=== PATIENT | female | born 1950 | race Caucasian/White ===

== ENCOUNTER 2018-05-22 12:47 | Inpatient (IN) | payer MEDICARE, SELFPAY ==
[2018-05-22] VITALS (10 sets, daily range): BP systolic 117–169; BP diastolic 68–98; PULSE 59–77; RESP 15–20; TEMP 36.5–37.1; O2SAT 93–98; BMI 27.4; BMI 27.6
--- NOTE | 2018-05-22 13:27 | RAD_ITS ---
STUDY: X-RAY CHEST REASON FOR EXAM: Female, 67 years old. CABG, stents. TECHNIQUE: Portable upright chest COMPARISON: None. FINDINGS: Clear lungs, hyperlucent and hyperinflated consistent with underlying COPD. Median sternotomy and CABG. Borderline cardiomegaly. Normal mediastinal silhouette, abdi and pleural margins. No acute osseous or upper abdominal process. RAD/Chest 1 View (Portable) IMPRESSION: No acute cardiopulmonary process. Electronically Signed: Venancio Carrasquillo, at 13:52 EDT Tel , Service support ,
--- NOTE | 2018-05-22 13:27 | EKG12_ITS ---
Test Reason : CP Blood Pressure : / mmHG Vent. Rate : 074 BPM Atrial Rate : 074 BPM P-R Int : 144 ms QRS Dur : 098 ms QT Int : 350 ms P-R-T Axes : 067 063 163 degrees QTc Int : 388 ms Sinus rhythm with occasional Premature ventricular complexes and Premature atrial complexes Marked ST abnormality, possible inferolateral subendocardial injury Abnormal ECG Confirmed by ANTONIA HOLLIS, RYDER ([id number]), scientific publications editor SENG AZEVEDO ([id number]) on 05/29/2018 3:46:55 PM Referred By: ACOSTA Confirmed By:RYDER KNIGHT MD
[2018-05-22 13:42] LABS: Absolute Lymphocyte Count 2.76 X10^3/ul (0.83-4.51); Absolute Neutrophil Count 6.4 X10^3/uL (2.0-7.7); Basophil# 0.02 X10^3/uL; Basophil% 0.2 % (0-1); Eosinophil# 0.13 X10^3/uL; Eosinophils% 1.3 % (0-5); Hematocrit 44.4 % (37-47); Hemoglobin 14.4 g/dl (12.0-15.0); Lymphocyte # 2.76 X10^3/ul (4.0); Lymphocyte % 27.2 % (19-41); Mean Corp Hgb Conc 32.4 g/gl (32-36); Mean Corpuscular Hgb 28.7 pg (27.0-32.0); Mean Corpuscular Volume 88.6 fL (81-99); Mean Platelet Vol. 10.7 fl (6.2-12.0); Monocyte# 0.81 X10^3/uL; Neutrophil % 63.2 % (47-70); POSITIVE COUNT NO; POSITIVE DIFFERENTIAL NO; POSITIVE MORPHOLOGY NO; Platelet Count 251 K/mm3 (150-450); RBC Distribution Width CV 13.6 % (11.6-14.6); RBC Distribution Width SD 43.9 fl (35.1-43.9); Red Blood Count 5.01 M/mm3 (4.2-5.4); White Blood Count 10.1 K/mm3 (4.4-11.0)
[2018-05-22 13:51] LABS: Anion Gap 9 (5-15); BUN 12 mg/dL (7-18); BUN/Creat Ratio 13.5 RATIO (10-20); Calcium,Total 9.4 mg/dL (8.5-10.1); Chloride 101 mmol/L (98-107); Creatinine, Serum 0.89 mg/dL (0.55-1.02); EST Glomerular Filtration Rate 67 mL/min (>60); Est Glom Filt Rate - Afr Amer 81 mL/min (>60); Estimated Creatinine Clearance 47.18 ml/min; Glucose 118 mg/dL (74-106); Potassium 3.4 mmol/L (3.5-5.1); Sodium Level 138 mmol/L (136-145)
--- NOTE | 2018-05-22 15:01 | ED.VISSUMM ---
- ER Visit Summary Date of Service: 05/22/18 Chief Complaint: Chest pain History of Present Illness: The patient is a 67 F with she describes his back pain for the past couple of weeks. She states when she lays down at night she gets a tightness in her back that radiates up and across her shoulder blades. It improves after she sits upright. She also reports dyspnea on exertion that is similar to her prior cardiac symptoms. With her prior cardiac episodes she denies ever getting chest pain. She is a past history of CVA, coronary disease, IA, hypertension, high cholesterol. She had a four-way cardiac bypass and does have cardiac stents. She has not seen her corporate manager in several years and wishes to transfer her care to [place]. Physical Examination: Vital signs are unremarkable. Patient sitting upright in bed no acute distress. She denies pain currently. Heart is regular rate and rhythm. Lung sounds are clear. Abdomen is soft nontender. Lower extreme examination was no significant edema. Test Results: Portable chest x-ray shows no acute process. EKG is sinus at 74 with large anterior lateral ST depression. This is unchanged compared to 2007. CBC is unremarkable. Chemistry studies significant for potassium 3.4, otherwise unremarkable. Troponin is 0.030. Emergency Department Course and Treatment: Patient does take aspirin every morning. She is given a dose of Pepcid. On repeat evaluation she is resting comfortably. Patient will be discussed with the hospitalist as she does describe the dyspnea being consistent with her prior cardiac episodes. Treatment Plan: [] Disposition: Admit Impression: Chest pain This note was generated with [employer] dictation software. It may contain incorrect words, spelling, and punctuation that were not noted in review of the chart prior to signing ED Disposition - Plan for ED Patient: Chief Complaint: Chest Pain Referrals: Andrea Mccallum MD [Primary Care Provider] -
--- NOTE | 2018-05-22 15:29 | ECHOD_ITS ---
Reason For Study: dyspnea/SOB Procedure This was a 2D Doppler, Color Flow transthoracic echocardiogram. The study was technically difficult. PT exam performed supine due to recent heart cath. Exam performed portable in ICU/CCU. Left Ventricle Normal LV size. Left ventricular systolic function is normal. The estimated ejection fraction is 60 %. Normal diastology for age. No regional wall motion abnormalities noted. Right Ventricle Normal RV size. Normal systolic function. Atria The left atrium is mildly enlarged. Normal right atrium. Mitral Valve Normal mitral valve. Mild-Moderate (1-2+) eccentric mitral valve insufficiency. Tricuspid Valve Normal tricuspid valve. Mild (1+) tricuspid valve insufficiency. Pulmonary artery systolic pressure is 34 mmHg. Aortic Valve Trisinus/trileaflet aortic valve. Moderate focal aortic valve calcification. Peak aortic valve gradient 31 mmHg. Mean aortic valve gradient 13 mmHg. Mild aortic stenosis. Calculated aortic valve area (continuity equation) is 1.2 cm2. Pulmonic Valve The pulmonic valve is not well visualized. Great Vessels Normal aortic root. The pulmonary artery is normal size. Normal inferior vena cava. Pericardium/Pleural No pericardial effusion. MMode/2D Measurements & Calculations LVIDd: 4.7 cm IVSd: 1.1 cm LVOT diam: 1.7 cm LVIDs: 3.1 cm LVPWd: 1.1 cm LVOT area: 2.3 cm2 RVDd: 3.7 cm FS: 33.8 % Ao root diam: 2.5 cm LAV(MOD-bp): 77.1 ml LA A4 area: 22.1 cm2 LA dimension: 4.1 cm LAV(MOD-bp) Indexed: 45.6 ml/m2 LAV(MOD-sp2): 79.4 ml LAV(MOD-sp4): 66.2 ml RA A4 area: 17.8 cm2 Doppler Measurements & Calculations MV E max kapil: 92.2 cm/sec Lat Peak E' Kapil: 7.9 cm/sec Med Peak E' Kapil: 6.4 cm/sec MV A max kapil: 84.4 cm/sec E/E' lat: 11.6 E/E' med: 14.5 MV E/A: 1.1 Ao V2 max: 278.7 cm/sec LV V1 max: 143.6 cm/sec MR max kapil: 543.5 cm/sec Ao max P.1 mmHg LV V1 max P.3 mmHg MR max P.2 mmHg Ao V2 mean: 170.5 cm/sec LV V1 mean P.4 mmHg Ao mean P.3 mmHg LV V1 mean: 99.7 cm/sec Ao V2 VTI: 57.0 cm LV V1 VTI: 33.1 cm JCAQUELYN(I,D): 1.3 cm2 JACQUELYN(V,D): 1.2 cm2 SV(LVOT): 74.9 ml PA V2 max: 95.0 cm/sec TR max kapil: 272.5 cm/sec TR max P.8 mmHg Interpretation Summary Normal LV size. Left ventricular systolic function is normal. The estimated ejection fraction is 60 %. Normal diastology for age. Mild aortic stenosis. Moderate focal aortic valve calcification. Ordering Physician: Rodolfo Pearl Referring Physician: Andrea Mccallum Performed By: Marsha Finn RDCS, RVT
--- NOTE | 2018-05-22 15:42 | PCM.HP.STD ---
Problem List (1) CAD (coronary artery disease) Status: Chronic (2) HLD (hyperlipidemia) Status: Chronic (3) HTN (hypertension) Status: Chronic (4) SOB (shortness of breath) Status: Acute History of Present Illness Date of Admission: 05/22/18 Chief Complaint: SOB The patient is a 67 year old F with a PMH as above who presents with 5 weeks of SOB that worsens at night and chest pain that is intermittent and started in her back between her shoulder blades and can sometimes go to her shoulder and arms. She has to sit up with the pain starts which causes it to go away and resolve. No fevers, chills, syncope, lightheadedness. She also has significant REYES and cannot walk very far which is also new. No edema or recent leg pain. No travel or other indications for a DVT or PE. In the ER EKG was abnormal with ST depressions in lateral leads and in lead 2 which per report is similar to her previous EKG. Troponin was 0.03, and her VSS. Past Medical History Past Medical History (Chronic Problems): Chronic Problems CAD (coronary artery disease) (Chronic) HLD (hyperlipidemia) (Chronic) HTN (hypertension) (Chronic) Allergies amoxicillin [From Augmentin] Adverse Reaction (Verified 05/22/18 12:50) Nausea/Vom/Diarrhea clavulanic acid [From Augmentin] Adverse Reaction (Verified 05/22/18 12:50) Nausea/Vom/Diarrhea Home Medications: Ambulatory Orders Medication Instructions Recorded Amlodipine [Norvasc] 10 mg PO DAILY 05/22/18 Aspirin 325 mg PO DAILY@0800 05/22/18 Benazepril HCl [Lotensin] 20 mg PO DAILY 05/22/18 Carvedilol [Coreg] 25 mg PO DAILY 05/22/18 Surgical History: coronary bypass surgery, - - Cardiac stents, Left carotid endarterectomy Smoking Status: Never smoker Alcohol: None Drugs: None - *Family History Paternal History Items: Heart Disease, - - Multiple uncles had HI in their 30's and 40's Review of Systems Constitutional: Denies: Chills, Fever, Weight Change HEENT: Denies: Head Aches, Sinus Congestion, Sinus Drainage Cardiovascular: Reports: Chest Pain. Denies: Orthopnea, Palpitations, Syncope Respiratory: Reports: Shortness of Breath, Shortness of breath upon exertion. Denies: Cough, Sputum production Gastrointestinal: Denies: Abdominal Pain, Nausea, Vomiting Genitourinary: Denies: Dysuria Musculoskeletal: Denies: Joint Pain, Joint Tenderness Skin: Denies: Rash, Wounds Neurological: Denies: Numbness, Tingling, Focal weakness Psychiatric: Denies: Anxiety, Depression Hematologic/ Lymphatic: Denies: Easy Bruising, Easy Bleeding VTE Information - Inpt Only VTE Present on Admission: No Patient Problems: Active and Suspected Problems SOB (shortness of breath) (Acute) - Physical Exam General: Alert, Oriented x3, Cooperative, No apparent distress HEENT: Atraumatic, PERRLA, EOMI, Normocephalic Oral: Moist Mucosa Neck: Supple, No JVD Lungs: Clear to auscultation, Normal air movement, No rhonchi, No wheeze, No rales Cardiovascular: Regular rate, Regular Rhythm, Normal S1, Normal S2, No murmurs Abdomen: Soft, Non Tender, Non-Distended, No Hepato-splenomegaly Extremities: No edema, Capillary Refill Less than 3 Seconds Musculoskeletal: No Tenderness to Palpation of Joints or Extremities Neurological: Neuro grossly intact, Sensory exam intact to light touch and pain Psych/Mental Status: Normal Affect, Appropriate Vital Signs Temp Pulse Resp BP Pulse Ox 97.7 F L 77 17 142/98 H 98 05/22/18 12:47 05/22/18 15:16 05/22/18 15:16 05/22/18 15:16 05/22/18 15:16 Oxygen Flow Rate (L/min) 98 Oxygen Delivery Method Room Air Weight: 150 lb Body Mass Index (BMI) 27.4 Laboratory Tests Past 24 Hrs 05/22/18 05/22/18 12:50 12:50 WBC 10.1 RBC 5.01 Hgb 14.4 Hct 44.4 MCV 88.6 MCH 28.7 MCHC 32.4 RDW 13.6 RDW Differential 43.9 Plt Count 251 MPV 10.7 Immature Gran % (Auto) 0.100 Neut % (Auto) 63.2 Lymph % (Auto) 27.2 [place] % (Auto) 8.0 Eos % (Auto) 1.3 Baso % (Auto) 0.2 Absolute Neuts (auto) 6.4 Absolute Lymphs (auto) 2.76 Total Counted Not Reportable Sodium 138 Potassium 3.4 L Chloride 101 Carbon Dioxide 28.0 Anion Gap 9 BUN 12 Creatinine 0.89 Estim Creat Clear Calc 47.18 Est GFR (MDRD) Af Amer 81 Est GFR (MDRD) Non-Af 67 BUN/Creatinine Ratio 13.5 Glucose 118 H Calcium 9.4 Troponin I 0.030 Assessment/Plan All Active Problems SOB (shortness of breath) (Acute) 1. SOB/REYES/CAD s/p 4x CABG and stents/HTN/HLD - She had her CABG in her 40's and her stents 8-12 years ago - Her correctional officer is in [place] who she has not seen in years - To her this pain is different than her previous HI pain - Trend troponins and C/s to cardiology - Echo and nuclear stress as she has no exercise tolerability - Will attempt to get her old cardiac records - can resume her home medications - She is on a daily Aspirin, GIANLUCA-I, Coreg and norvasc - CXR was normal in the ED DVT: Heparin Diet: Cardiac Code Visit OBSV E&M: 42883 Initial observation care L3
--- NOTE | 2018-05-22 15:46 | HP.PCM_ITS ---
Problem List (1) CAD (coronary artery disease) Status: Chronic (2) HLD (hyperlipidemia) Status: Chronic (3) HTN (hypertension) Status: Chronic (4) SOB (shortness of breath) Status: Acute History of Present Illness Date of Admission: 05/22/18 Chief Complaint: SOB The patient is a 67 year old F with a PMH as above who presents with 5 weeks of SOB that worsens at night and chest pain that is intermittent and started in her back between her shoulder blades and can sometimes go to her shoulder and arms. She has to sit up with the pain starts which causes it to go away and resolve. No fevers, chills, syncope, lightheadedness. She also has significant REYES and cannot walk very far which is also new. No edema or recent leg pain. No travel or other indications for a DVT or PE. In the ER EKG was abnormal with ST depressions in lateral leads and in lead 2 which per report is similar to her previous EKG. Troponin was 0.03, and her VSS. Past Medical History Past Medical History (Chronic Problems): Chronic Problems CAD (coronary artery disease) (Chronic) HLD (hyperlipidemia) (Chronic) HTN (hypertension) (Chronic) Allergies amoxicillin [From Augmentin] Adverse Reaction (Verified 05/22/18 12:50) Nausea/Vom/Diarrhea clavulanic acid [From Augmentin] Adverse Reaction (Verified 05/22/18 12:50) Nausea/Vom/Diarrhea Home Medications: Ambulatory Orders Medication Instructions Recorded Amlodipine [Norvasc] 10 mg PO DAILY 05/22/18 Aspirin 325 mg PO DAILY@0800 05/22/18 Benazepril HCl [Lotensin] 20 mg PO DAILY 05/22/18 Carvedilol [Coreg] 25 mg PO DAILY 05/22/18 Surgical History: coronary bypass surgery, - - Cardiac stents, Left carotid endarterectomy Smoking Status: Never smoker Alcohol: None Drugs: None - *Family History Paternal History Items: Heart Disease, - - Multiple uncles had DC in their 30's and 40's Review of Systems Constitutional: Denies: Chills, Fever, Weight Change HEENT: Denies: Head Aches, Sinus Congestion, Sinus Drainage Cardiovascular: Reports: Chest Pain. Denies: Orthopnea, Palpitations, Syncope Respiratory: Reports: Shortness of Breath, Shortness of breath upon exertion. Denies: Cough, Sputum production Gastrointestinal: Denies: Abdominal Pain, Nausea, Vomiting Genitourinary: Denies: Dysuria Musculoskeletal: Denies: Joint Pain, Joint Tenderness Skin: Denies: Rash, Wounds Neurological: Denies: Numbness, Tingling, Focal weakness Psychiatric: Denies: Anxiety, Depression Hematologic/ Lymphatic: Denies: Easy Bruising, Easy Bleeding VTE Information - Inpt Only VTE Present on Admission: No Patient Problems: Active and Suspected Problems SOB (shortness of breath) (Acute) - Physical Exam General: Alert, Oriented x3, Cooperative, No apparent distress HEENT: Atraumatic, PERRLA, EOMI, Normocephalic Oral: Moist Mucosa Neck: Supple, No JVD Lungs: Clear to auscultation, Normal air movement, No rhonchi, No wheeze, No rales Cardiovascular: Regular rate, Regular Rhythm, Normal S1, Normal S2, No murmurs Abdomen: Soft, Non Tender, Non-Distended, No Hepato-splenomegaly Extremities: No edema, Capillary Refill Less than 3 Seconds Musculoskeletal: No Tenderness to Palpation of Joints or Extremities Neurological: Neuro grossly intact, Sensory exam intact to light touch and pain Psych/Mental Status: Normal Affect, Appropriate Vital Signs Temp Pulse Resp BP Pulse Ox 97.7 F L 77 17 142/98 H 98 05/22/18 12:47 05/22/18 15:16 05/22/18 15:16 05/22/18 15:16 05/22/18 15:16 Oxygen Flow Rate (L/min) 98 Oxygen Delivery Method Room Air Weight: 150 lb Body Mass Index (BMI) 27.4 Laboratory Tests Past 24 Hrs 05/22/18 05/22/18 12:50 12:50 WBC 10.1 RBC 5.01 Hgb 14.4 Hct 44.4 MCV 88.6 MCH 28.7 MCHC 32.4 RDW 13.6 RDW Differential 43.9 Plt Count 251 MPV 10.7 Immature Gran % (Auto) 0.100 Neut % (Auto) 63.2 Lymph % (Auto) 27.2 [place] % (Auto) 8.0 Eos % (Auto) 1.3 Baso % (Auto) 0.2 Absolute Neuts (auto) 6.4 Absolute Lymphs (auto) 2.76 Total Counted Not Reportable Sodium 138 Potassium 3.4 L Chloride 101 Carbon Dioxide 28.0 Anion Gap 9 BUN 12 Creatinine 0.89 Estim Creat Clear Calc 47.18 Est GFR (MDRD) Af Amer 81 Est GFR (MDRD) Non-Af 67 BUN/Creatinine Ratio 13.5 Glucose 118 H Calcium 9.4 Troponin I 0.030 Assessment/Plan All Active Problems SOB (shortness of breath) (Acute) 1. SOB/REYES/CAD s/p 4x CABG and stents/HTN/HLD - She had her CABG in her 40's and her stents 8-12 years ago - Her atm servicer is in [place] who she has not seen in years - To her this pain is different than her previous DC pain - Trend troponins and C/s to cardiology - Echo and nuclear stress as she has no exercise tolerability - Will attempt to get her old cardiac records - can resume her home medications - She is on a daily Aspirin, GIANLUCA-I, Coreg and norvasc - CXR was normal in the ED DVT: Heparin Diet: Cardiac Code Visit OBSV E&M: 33111 Initial observation care L3
--- NOTE | 2018-05-22 15:47 | EKG12_ITS ---
Test Reason : ADMISSION EKG Blood Pressure : / mmHG Vent. Rate : 067 BPM Atrial Rate : 067 BPM P-R Int : 146 ms QRS Dur : 094 ms QT Int : 370 ms P-R-T Axes : 065 046 143 degrees QTc Int : 390 ms Normal sinus rhythm ST & T wave abnormality, consider lateral ischemia Abnormal ECG When compared with ECG of 22-MAY-2018 12:44, MANUAL COMPARISON REQUIRED, DATA IS UNCONFIRMED Confirmed by ANTONIA HOLLIS, RYDER ([id number]), tape editor SENG AZEVEDO ([id number]) on 05/24/2018 3:35:55 PM Referred By: RAMILA Confirmed By:RYDER KNIGHT MD
[2018-05-22 17:10] LABS: Magnesium 2.1 mg/dL (1.6-2.6)
--- NOTE | 2018-05-22 18:12 | PCM.CONS.C ---
Reason for Consult Date of Consultation: 05/22/18 Reason for Consultation: Chest pain, back pain and shortness of breath. History of Present Illness: The patient is a 67 year old F with a past medical history significant for coronary artery disease status post four-vessel coronary bypass surgery remotely. She has not followed up with a director special education for over 10 years. She says that over the last 2 months she has been having shortness of breath with exertion and easy fatigability. She has also developed chest discomfort which she describes as intermittent as well as back discomfort in the middle of her chest. This above appears to occur with exertion. She occasionally has it at rest. Due to the worsening discomfort that she has been having she decided to present to the emergency room. In the emergency room an electrocardiogram was done which was abnormal and she was admitted to the telemetry unit. She also had mildly abnormal cardiac enzymes. She has had no dizziness or diaphoresis no near syncope or syncope. [] Past Medical History Allergies/Adverse Reactions: Allergies amoxicillin [From Augmentin] Adverse Reaction (Verified 05/22/18 12:50) Nausea/Vom/Diarrhea clavulanic acid [From Augmentin] Adverse Reaction (Verified 05/22/18 12:50) Nausea/Vom/Diarrhea Home Medications: Ambulatory Orders Medication Instructions Recorded Amlodipine [Norvasc] 10 mg PO DAILY 05/22/18 Aspirin 325 mg PO DAILY@0800 05/22/18 Benazepril HCl [Lotensin] 20 mg PO DAILY 05/22/18 Carvedilol [Coreg] 25 mg PO DAILY 05/22/18 Past Medical History (Chronic Problems): Chronic Problems CAD (coronary artery disease) (Chronic) HLD (hyperlipidemia) (Chronic) HTN (hypertension) (Chronic) Surgical History: coronary bypass surgery, - - Cardiac stents, Left carotid endarterectomy - *Family History Paternal History Items: Heart Disease, - - Multiple uncles had SD in their 30's and 40's Smoking Status: Never smoker Alcohol: None Drugs: None Review of Systems - Review of Systems General: Denies: Fever, Night Sweats, Fatigue Cardiovascular: Reports: Chest Discomfort at Rest, Chest Discomfort with Exertion, Shortness of Breath, Shortness of Breath at Rest. Denies: Chest Discomfort, Orthopnea, PND, Peripheral Edema, Palpitations, Lightheadedness, Dizziness, Near Syncope, Syncope Respiratory: Denies: Cough, Sputum Production, Hemoptysis Gastrointestinal: Denies: Hematemesis, Hematochezia, Melena Genitourinary: Denies: Dysuria, Hematuria Skin: Denies: Rash Subjectve: Pleasant lady in no apparent distress at this time. Objective: Vital Signs Temp Pulse Resp BP Pulse Ox 98.7 F 70 16 142/87 H 94 05/22/18 16:18 05/22/18 16:18 05/22/18 16:18 05/22/18 16:19 05/22/18 16:18 Oxygen Flow Rate (L/min) 98 Oxygen Delivery Method Room Air Weight: 150 lb 12.8 oz Body Mass Index (BMI) 27.6 General: Awake, Alert, Oriented x 3 HEENT: PERRL, EOMI, Sclera Non Icteric Neck: Supple, Good ROM, No Lymph Node Enlargement, - - Left carotid endarterectomy scar Lungs: Clear to auscultation Cardiovascular: Regular Rhythm, Normal S1, Normal S2, No Murmurs, No Rubs, No Gallops Vascular: No Carotid Bruits, Normal Femoral Pulses, Normal Radial Pulses, Normal Dorsalis Pedal Pulse, Normal Posterior Tibial Pulses Abdomen: Bowel Sounds Present, Soft, Non Tender, No HSM, No Organomegaly Extremities: No Cyanosis, No Clubbing, No edema Neurological: No Focal Motor or Sensory Deficit 05/22/18 12:50: WBC 10.1, RBC 5.01, Hgb 14.4, Hct 44.4, MCV 88.6, MCH 28.7, MCHC 32.4, RDW 13.6, RDW Differential 43.9, Plt Count 251, MPV 10.7, Immature Gran % (Auto) 0.100, Neut % (Auto) 63.2, Lymph % (Auto) 27.2, [place] % (Auto) 8.0, Eos % (Auto) 1.3, Baso % (Auto) 0.2, Absolute Neuts (auto) 6.4, Total Counted Not Reportable 05/22/18 12:50: Sodium 138, Potassium 3.4 L, Chloride 101, Carbon Dioxide 28.0, Anion Gap 9, BUN 12, Creatinine 0.89, Est GFR (MDRD) Af Amer 81, Est GFR (MDRD) Non-Af 67, BUN/Creatinine Ratio 13.5, Glucose 118 H, Calcium 9.4, Troponin I 0.030 05/22/18 16:17: Magnesium 2.1, Troponin I 0.031 Rhythm: EKG: Normal sinus rhythm with a rate of [address] depression is noted in lead I, aVL, V2 through V6. Assessment/Plan 1. Chest pain.-Unstable angina She presents with chest discomfort which is concerning for unstable angina. She does have EKG changes which appear to be dynamic. I did express to her that the appropriate modality would be to pursue a left heart catheterization to assess her coronary anatomy and to guide therapy. The risk benefits alternatives have been explained to her. Unfortunately she has not been to a physician in over 10 years and we do not have the bypass report or stenting report. I did explain to her that this may make it a little more difficult with her catheterization. Will continue aspirin Will load with clopidogrel tonight Clopidogrel 75 mg in a.m. Continue beta-abel 2. Hypertension The patient has a history of known hypertension currently on beta-abel amlodipine and GIANLUCA inhibitor which will be continued. 3. Risk factor modification Will consider high intensity statin. 4. Peripheral vascular disease Patient has a history of left carotid endarterectomy. Would recommend a carotid ultrasound to evaluate the above. Thank you for allowing me to participate in the care of your patient. Please don't hesitate to call if any issues arise
--- NOTE | 2018-05-22 18:19 | CON.PCM_ITS ---
Reason for Consult Date of Consultation: 05/22/18 Reason for Consultation: Chest pain, back pain and shortness of breath. History of Present Illness: The patient is a 67 year old F with a past medical history significant for coronary artery disease status post four-vessel coronary bypass surgery remotely. 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 She says that over the last 2 months she has been having shortness of breath with exertion and easy fatigability. She has also developed chest discomfort which she describes as intermittent as well as back discomfort in the middle of her chest. This above appears to occur with exertion. She occasionally has it at rest. Due to the worsening discomfort that she has been having she decided to present to the emergency room. In the emergency room an electrocardiogram was done which was abnormal and she was admitted to the telemetry unit. She also had mildly abnormal cardiac enzymes. She has had no dizziness or diaphoresis no near syncope or syncope. [] Past Medical History Allergies/Adverse Reactions: Allergies amoxicillin [From Augmentin] Adverse Reaction (Verified 05/22/18 12:50) Nausea/Vom/Diarrhea clavulanic acid [From Augmentin] Adverse Reaction (Verified 05/22/18 12:50) Nausea/Vom/Diarrhea Home Medications: Ambulatory Orders Medication Instructions Recorded Amlodipine [Norvasc] 10 mg PO DAILY 05/22/18 Aspirin 325 mg PO DAILY@0800 05/22/18 Benazepril HCl [Lotensin] 20 mg PO DAILY 05/22/18 Carvedilol [Coreg] 25 mg PO DAILY 05/22/18 Past Medical History (Chronic Problems): Chronic Problems CAD (coronary artery disease) (Chronic) HLD (hyperlipidemia) (Chronic) HTN (hypertension) (Chronic) Surgical History: coronary bypass surgery, - - Cardiac stents, Left carotid endarterectomy - *Family History Paternal History Items: Heart Disease, - - Multiple uncles had [place] in their 30's and 40's Smoking Status: Never smoker Alcohol: None Drugs: None Review of Systems - Review of Systems General: Denies: Fever, Night Sweats, Fatigue Cardiovascular: Reports: Chest Discomfort at Rest, Chest Discomfort with Exertion, Shortness of Breath, Shortness of Breath at Rest. Denies: Chest Discomfort, Orthopnea, PND, Peripheral Edema, Palpitations, Lightheadedness, Dizziness, Near Syncope, Syncope Respiratory: Denies: Cough, Sputum Production, Hemoptysis Gastrointestinal: Denies: Hematemesis, Hematochezia, Melena Genitourinary: Denies: Dysuria, Hematuria Skin: Denies: Rash Subjectve: Pleasant lady in no apparent distress at this time. Objective: Vital Signs Temp Pulse Resp BP Pulse Ox 98.7 F 70 16 142/87 H 94 05/22/18 16:18 05/22/18 16:18 05/22/18 16:18 05/22/18 16:19 05/22/18 16:18 Oxygen Flow Rate (L/min) 98 Oxygen Delivery Method Room Air Weight: 150 lb 12.8 oz Body Mass Index (BMI) 27.6 General: Awake, Alert, Oriented x 3 HEENT: PERRL, EOMI, Sclera Non Icteric Neck: Supple, Good ROM, No Lymph Node Enlargement, - - Left carotid endarterectomy scar Lungs: Clear to auscultation Cardiovascular: Regular Rhythm, Normal S1, Normal S2, No Murmurs, No Rubs, No Gallops Vascular: No Carotid Bruits, Normal Femoral Pulses, Normal Radial Pulses, Normal Dorsalis Pedal Pulse, Normal Posterior Tibial Pulses Abdomen: Bowel Sounds Present, Soft, Non Tender, No HSM, No Organomegaly Extremities: No Cyanosis, No Clubbing, No edema Neurological: No Focal Motor or Sensory Deficit 05/22/18 12:50: WBC 10.1, RBC 5.01, Hgb 14.4, Hct 44.4, MCV 88.6, MCH 28.7, MCHC 32.4, RDW 13.6, RDW Differential 43.9, Plt Count 251, MPV 10.7, Immature Gran % (Auto) 0.100, Neut % (Auto) 63.2, Lymph % (Auto) 27.2, [place] % (Auto) 8.0, Eos % (Auto) 1.3, Baso % (Auto) 0.2, Absolute Neuts (auto) 6.4, Total Counted Not Reportable 05/22/18 12:50: Sodium 138, Potassium 3.4 L, Chloride 101, Carbon Dioxide 28.0, Anion Gap 9, BUN 12, Creatinine 0.89, Est GFR (MDRD) Af Amer 81, Est GFR (MDRD) Non-Af 67, BUN/Creatinine Ratio 13.5, Glucose 118 H, Calcium 9.4, Troponin I 0.030 05/22/18 16:17: Magnesium 2.1, Troponin I 0.031 Rhythm: EKG: Normal sinus rhythm with a rate of [address] depression is noted in lead I, aVL, V2 through V6. Assessment/Plan 1. Chest pain.-Unstable angina * She presents with chest discomfort which is concerning for unstable angina. She does have EKG changes which appear to be dynamic. I did express to her that the appropriate modality would be to pursue a left heart catheterization to assess her coronary anatomy and to guide therapy. The risk benefits alternatives have been explained to her. Unfortunately she has not been to a physician in over 10 years and we do not have the bypass report or stenting report. I did explain to her that this may make it a little more difficult with her catheterization. * Will continue aspirin * Will load with clopidogrel tonight * Clopidogrel 75 mg in a.m. * Continue beta-abel * 2. Hypertension * The patient has a history of known hypertension currently on beta-abel amlodipine and GIANLUCA inhibitor which will be continued. * 3. Risk factor modification * Will consider high intensity statin. * 4. Peripheral vascular disease * Patient has a history of left carotid endarterectomy. Would recommend a carotid ultrasound to evaluate the above. * * Thank you for allowing me to participate in the care of your patient. Please don't hesitate to call if any issues arise
[2018-05-22] MEDS: Clopidogrel Bisulfate 300 MG Tablet PO (18:42)
[2018-05-22] MEDS: 0.9% NaCl Peripheral Flush Adult/Peds IV (18:42)
[2018-05-22] MEDS: CLARIFY ORDER 1 EACH NOTE (22:00)
[2018-05-23] VITALS (29 sets, daily range): BP systolic 109–174; BP diastolic 45–111; PULSE 50–61; RESP 14–96; TEMP 36.5–36.8; O2SAT 94–100
[2018-05-23 04:05] LABS: Bacteria 0 SEEN /hpf (None Seen); Mucous, Urine 0 SEEN /hpf (<or=2+); Red Blood Cells-Urine 0 SEEN /hpf (0-5)
[2018-05-23 04:13] LABS: Color, Urine Yellow (Yellow); Glucose, Dipstick Normal (Normal); Ketone-Dipstick 5 mg/dl (Negative); Leukocyte Esterase-Dipstick 500 /ul (Negative); Nitrite-Dipstick Negative (Negative); Occult Blood-Urine Negative /ul (Negative); Protein-Dipstick 15 mg/dl (Negative); Urine Bilirubin Dipstick Negative (Negative); Urine Clarity Clear (Clear); Urine Urobilinogen Normal (Normal)
[2018-05-23 04:31] LABS: Squamous Epithelial Cells - UA 0-5 SEEN /hpf (5-10); White Blood Cells 5-10 SEEN /hpf (0-5)
--- NOTE | 2018-05-23 05:55 | EKG12_ITS ---
Test Reason : Blood Pressure : / mmHG Vent. Rate : 056 BPM Atrial Rate : 056 BPM P-R Int : 152 ms QRS Dur : 090 ms QT Int : 450 ms P-R-T Axes : 061 057 090 degrees QTc Int : 434 ms Sinus bradycardia Nonspecific ST abnormality Abnormal ECG Confirmed by JANESSA HOLLIS, MAHENDRA ([id number]), art editor SENG AZEVEDO ([id number] on 05/25/2018 2:19:01 PM Referred By: Confirmed By:MAHENDRA RIDDLE MD
[2018-05-23] MEDS: LORazepam 0.5 MG Tablet PO (06:00)
[2018-05-23] MEDS: Aspirin 325 MG Tablet PO (06:01)
[2018-05-23] MEDS: 0.9% Normal Saline 1,000 ML 15 ML IV (06:01)
[2018-05-23] MEDS: Clopidogrel Bisulfate 75 MG Tablet PO (06:02)
[2018-05-23] MEDS: amLODIPine 10 MG Tablet PO (06:02)
[2018-05-23] MEDS: Lisinopril 20 MG Tablet PO (06:03)
[2018-05-23] MEDS: 0.9% NaCl Peripheral Flush Adult/Peds IV ×2 (06:04→07:06)
[2018-05-23 06:19] LABS: Absolute Lymphocyte Count 2.03 X10^3/ul (0.83-4.51); Basophil# 0.03 X10^3/uL; Basophil% 0.4 % (0-1); Eosinophil# 0.15 X10^3/uL; Eosinophils% 1.9 % (0-5); Hematocrit 43.7 % (37-47); Hemoglobin 14.5 g/dl (12.0-15.0); Lymphocyte # 2.03 X10^3/ul (4.0); Lymphocyte % 25.6 % (19-41); Mean Corp Hgb Conc 33.2 g/gl (32-36); Mean Corpuscular Hgb 29.3 pg (27.0-32.0); Mean Corpuscular Volume 88.3 fL (81-99); Mean Platelet Vol. 10.5 fl (6.2-12.0); Monocyte# 0.73 X10^3/uL; Monocyte% 9.2 % (0-10); Neutrophil # 4.99 X10^3/uL (2.7-7.7); Neutrophil % 62.8 % (47-70); Platelet Count 229 K/mm3 (150-450); RBC Distribution Width CV 13.6 % (11.6-14.6); RBC Distribution Width SD 43.9 fl (35.1-43.9); Red Blood Count 4.95 M/mm3 (4.2-5.4); White Blood Count 7.9 K/mm3 (4.4-11.0)
[2018-05-23 06:23] LABS: Prothrombin Time (Protime)PT. 12.8 SECONDS (11.7-14.9)
[2018-05-23 06:24] LABS: Partial Thromboplast Time 30.3 Seconds (24.1-36.2)
[2018-05-23] MEDS: Carvedilol 25 MG Tablet PO (06:33)
[2018-05-23 06:37] LABS: POSITIVE COUNT NO; POSITIVE DIFFERENTIAL NO; POSITIVE MORPHOLOGY NO
[2018-05-23 06:44] LABS: Anion Gap 9 (5-15); BUN 12 mg/dL (7-18); BUN/Creat Ratio 15.1 RATIO (10-20); Calcium,Total 9.1 mg/dL (8.5-10.1); Chloride 104 mmol/L (98-107); Cholesterol 411 mg/dL (200); Creatinine, Serum 0.79 mg/dL (0.55-1.02); EST Glomerular Filtration Rate 76 mL/min (>60); Est Glom Filt Rate - Afr Amer 92 mL/min (>60); Estimated Creatinine Clearance 41.99 ml/min; Glucose 117 mg/dL (74-106); High Density Lipoprotein 47 mg/dL; Potassium 4.1 mmol/L (3.5-5.1); Sodium Level 140 mmol/L (136-145); Triglycerides 145 mg/dL; Very Low Density Lipoprotein 29 mg/dL (5-40)
--- NOTE | 2018-05-23 08:20 | NURSING ---
CALLED REPORT TO KRISTIN WILDER IN ICU
--- NOTE | 2018-05-23 08:21 | PCM.PN.CARD ---
Subjectve: Patient seen and evaluated and underwent cardiac catheterization this morning Objective: Vital Signs Temp Pulse Resp BP Pulse Ox 98.3 F 56 L 18 161/78 H 97 05/23/18 05:58 05/23/18 07:01 05/23/18 05:58 05/23/18 05:58 05/23/18 05:58 Oxygen Flow Rate (L/min) 98 Oxygen Delivery Method Room Air Weight: 150 lb 12.8 oz Body Mass Index (BMI) 27.6 Intake and Output for Last 24 Hours 05/21/18 05/22/18 05/23/18 23:59 23:59 23:59 Intake Total 500 / 500 Balance 500 / 500 General: Awake, Alert, Oriented x 3 HEENT: PERRL, EOMI, Sclera Non Icteric Neck: Supple, Good ROM, No Lymph Node Enlargement Lungs: Clear to auscultation Cardiovascular: Regular Rhythm, Normal S1, Normal S2, No Murmurs, No Rubs, No Gallops Vascular: No Carotid Bruits, Normal Femoral Pulses, Normal Radial Pulses, Normal Dorsalis Pedal Pulse, Normal Posterior Tibial Pulses Abdomen: Bowel Sounds Present, Soft, Non Tender, No HSM, No Organomegaly Extremities: No Cyanosis, No Clubbing, No edema Neurological: No Focal Motor or Sensory Deficit 05/22/18 12:50: WBC 10.1, RBC 5.01, Hgb 14.4, Hct 44.4, MCV 88.6, MCH 28.7, MCHC 32.4, RDW 13.6, RDW Differential 43.9, Plt Count 251, MPV 10.7, Immature Gran % (Auto) 0.100, Neut % (Auto) 63.2, Lymph % (Auto) 27.2, [place] % (Auto) 8.0, Eos % (Auto) 1.3, Baso % (Auto) 0.2, Absolute Neuts (auto) 6.4, Total Counted Not Reportable 05/22/18 12:50: Sodium 138, Potassium 3.4 L, Chloride 101, Carbon Dioxide 28.0, Anion Gap 9, BUN 12, Creatinine 0.89, Est GFR (MDRD) Af Amer 81, Est GFR (MDRD) Non-Af 67, BUN/Creatinine Ratio 13.5, Glucose 118 H, Calcium 9.4, Troponin I 0.030 05/22/18 16:17: Magnesium 2.1, Troponin I 0.031 05/22/18 19:01: Troponin I 0.035 05/23/18 03:45: Urine Color Yellow, Urine Clarity Clear, Urine pH 7.0, Ur Specific [place] 1.010, Urine Protein 15 H, Urine Glucose (UA) Normal, Urine Ketones 5 H, Urine Occult Blood Negative, Urine Nitrite Negative, Urine Bilirubin Negative, Urine Urobilinogen Normal, Ur Leukocyte Esterase 500 H, Urine RBC 0 SEEN, Urine WBC 5-10 SEEN 05/23/18 05:50: WBC 7.9, RBC 4.95, Hgb 14.5, Hct 43.7, MCV 88.3, MCH 29.3, MCHC 33.2, RDW 13.6, RDW Differential 43.9, Plt Count 229, MPV 10.5, Immature Gran % (Auto) 0.100, Neut % (Auto) 62.8, Lymph % (Auto) 25.6, [place] % (Auto) 9.2, Eos % (Auto) 1.9, Baso % (Auto) 0.4, Absolute Neuts (auto) 5.0, Total Counted Not Reportable 05/23/18 05:50: Sodium 140, Potassium 4.1, Chloride 104, Carbon Dioxide 27.0, Anion Gap 9, BUN 12, Creatinine 0.79, Est GFR (MDRD) Af Amer 92, Est GFR (MDRD) Non-Af 76, BUN/Creatinine Ratio 15.1, Glucose 117 H, Calcium 9.1, Triglycerides 145, Cholesterol 411 H, LDL Cholesterol 335 H, VLDL Cholesterol 29, HDL Cholesterol 47 05/23/18 05:50: PT 12.8, INR 1.0, APTT 30.3 Rhythm: EKG: ECHO: Stress Test: Cardiac Cath: PCI: CT Surgery: Holter monitor: EPS: PPM: CXR: Chest CT Scan: Medical Necessity - Tobacco Use Smoking Status: Never smoker Assessment/Plan 1. Chest pain.-Unstable angina She presents with chest discomfort which is concerning for unstable angina. She does have EKG changes which appear to be dynamic. I did express to her that the appropriate modality would be to pursue a left heart catheterization to assess her coronary anatomy and to guide therapy. She underwent a cardiac catheterization which demonstrated the following: Left main coronary artery total distal occlusion. Left anterior descending artery totally occluded. Left circumflex artery totally occluded. Right coronary artery totally occluded. Saphenous vein graft to right coronary artery totally occluded. Saphenous vein graft to the circumflex artery. Totally occluded. Saphenous vein graft to the first diagonal vessel with a 95% mid segment in graft stenosis. Distal mild diffuse disease is noted. Left internal mammary artery to the left anterior descending artery is patent with left to right collaterals. Eccentric plaque noted in the mid left subclavian artery. Based on the above angiographic findings percutaneous coronary angioplasty is recommended. 2. Hypertension The patient has a history of known hypertension currently on beta-abel amlodipine and GIANLUCA inhibitor which will be continued. 3. Risk factor modification Will consider high intensity statin. Patient has very high LDL cholesterol. 4. Peripheral vascular disease Patient has a history of left carotid endarterectomy. Would recommend a carotid ultrasound to evaluate the above. Thank you for allowing me to participate in the care of your patient. Please don't hesitate to call if any issues arise
--- NOTE | 2018-05-23 08:29 | PN.CARD_ITS ---
Subjectve: Patient seen and evaluated and underwent cardiac catheterization this morning Objective: Vital Signs Temp Pulse Resp BP Pulse Ox 98.3 F 56 L 18 161/78 H 97 05/23/18 05:58 05/23/18 07:01 05/23/18 05:58 05/23/18 05:58 05/23/18 05:58 Oxygen Flow Rate (L/min) 98 Oxygen Delivery Method Room Air Weight: 150 lb 12.8 oz Body Mass Index (BMI) 27.6 Intake and Output for Last 24 Hours 05/21/18 05/22/18 05/23/18 23:59 23:59 23:59 Intake Total 500 / 500 Balance 500 / 500 General: Awake, Alert, Oriented x 3 HEENT: PERRL, EOMI, Sclera Non Icteric Neck: Supple, Good ROM, No Lymph Node Enlargement Lungs: Clear to auscultation Cardiovascular: Regular Rhythm, Normal S1, Normal S2, No Murmurs, No Rubs, No Gallops Vascular: No Carotid Bruits, Normal Femoral Pulses, Normal Radial Pulses, Normal Dorsalis Pedal Pulse, Normal Posterior Tibial Pulses Abdomen: Bowel Sounds Present, Soft, Non Tender, No HSM, No Organomegaly Extremities: No Cyanosis, No Clubbing, No edema Neurological: No Focal Motor or Sensory Deficit 05/22/18 12:50: WBC 10.1, RBC 5.01, Hgb 14.4, Hct 44.4, MCV 88.6, MCH 28.7, MCHC 32.4, RDW 13.6, RDW Differential 43.9, Plt Count 251, MPV 10.7, Immature Gran % (Auto) 0.100, Neut % (Auto) 63.2, Lymph % (Auto) 27.2, [place] % (Auto) 8.0, Eos % (Auto) 1.3, Baso % (Auto) 0.2, Absolute Neuts (auto) 6.4, Total Counted Not Reportable 05/22/18 12:50: Sodium 138, Potassium 3.4 L, Chloride 101, Carbon Dioxide 28.0, Anion Gap 9, BUN 12, Creatinine 0.89, Est GFR (MDRD) Af Amer 81, Est GFR (MDRD) Non-Af 67, BUN/Creatinine Ratio 13.5, Glucose 118 H, Calcium 9.4, Troponin I 0.030 05/22/18 16:17: Magnesium 2.1, Troponin I 0.031 05/22/18 19:01: Troponin I 0.035 05/23/18 03:45: Urine Color Yellow, Urine Clarity Clear, Urine pH 7.0, Ur Specific [place] 1.010, Urine Protein 15 H, Urine Glucose (UA) Normal, Urine Ketones 5 H, Urine Occult Blood Negative, Urine Nitrite Negative, Urine Bilirubin Negative, Urine Urobilinogen Normal, Ur Leukocyte Esterase 500 H, Urine RBC 0 SEEN, Urine WBC 5-10 SEEN 05/23/18 05:50: WBC 7.9, RBC 4.95, Hgb 14.5, Hct 43.7, MCV 88.3, MCH 29.3, MCHC 33.2, RDW 13.6, RDW Differential 43.9, Plt Count 229, MPV 10.5, Immature Gran % (Auto) 0.100, Neut % (Auto) 62.8, Lymph % (Auto) 25.6, [place] % (Auto) 9.2, Eos % (Auto) 1.9, Baso % (Auto) 0.4, Absolute Neuts (auto) 5.0, Total Counted Not Reportable 05/23/18 05:50: Sodium 140, Potassium 4.1, Chloride 104, Carbon Dioxide 27.0, Anion Gap 9, BUN 12, Creatinine 0.79, Est GFR (MDRD) Af Amer 92, Est GFR (MDRD) Non-Af 76, BUN/Creatinine Ratio 15.1, Glucose 117 H, Calcium 9.1, Triglycerides 145, Cholesterol 411 H, LDL Cholesterol 335 H, VLDL Cholesterol 29, HDL Cholesterol 47 05/23/18 05:50: PT 12.8, INR 1.0, APTT 30.3 Rhythm: EKG: ECHO: Stress Test: Cardiac Cath: PCI: CT Surgery: Holter monitor: EPS: PPM: CXR: Chest CT Scan: Medical Necessity - Tobacco Use Smoking Status: Never smoker Assessment/Plan 1. Chest pain.-Unstable angina * She presents with chest discomfort which is concerning for unstable angina. She does have EKG changes which appear to be dynamic. I did express to her that the appropriate modality would be to pursue a left heart catheterization to assess her coronary anatomy and to guide therapy. * She underwent a cardiac catheterization which demonstrated the following: Left main coronary artery total distal occlusion. Left anterior descending artery totally occluded. Left circumflex artery totally occluded. Right coronary artery totally occluded. Saphenous vein graft to right coronary artery totally occluded. Saphenous vein graft to the circumflex artery. Totally occluded. Saphenous vein graft to the first diagonal vessel with a 95% mid segment in graft stenosis. Distal mild diffuse disease is noted. Left internal mammary artery to the left anterior descending artery is patent with left to right collaterals. Eccentric plaque noted in the mid left subclavian artery. Based on the above angiographic findings percutaneous coronary angioplasty is recommended. 2. Hypertension * The patient has a history of known hypertension currently on beta-abel amlodipine and GIANLUCA inhibitor which will be continued. * 3. Risk factor modification * Will consider high intensity statin. Patient has very high LDL cholesterol. * 4. Peripheral vascular disease * Patient has a history of left carotid endarterectomy. Would recommend a carotid ultrasound to evaluate the above. * * Thank you for allowing me to participate in the care of your patient. Please don't hesitate to call if any issues arise
--- NOTE | 2018-05-23 08:29 | CL.D_ITS ---
Patient Name: TAMELA CISNEROS Study Date: 05/23/2018 Performing: Chai Dave MD Ht: 61.81 inches 157 cm : 1950 Wt: 149.91 lbs 68 kg Age: 67 Gender: female BSA: 1.69 PROCEDURE(S) PERFORMED DC11-AO ROOT ANGIO WITH HEART CATH [id number] AND/OR PTCA, SINGLE GRAFT [id number] CLINICAL PROFILE AND INDICATIONS Indications: Worsening Angina Heart Failure: None Stress/Imaging Stress/Image Study Performed: No Angina Classification Anginal Classification w/in 2 Weeks: CCS III CAD Presentations: Unstable angina. CONCLUSIONS Severe [place] CAD with occluded SVGs and patent CLARK to LAD Severe stenosis of SVG to diagonal RECOMMENDATIONS Referred for immediate PCI DESCRIPTION OF PROCEDURE The patient arrived to the procedure lab. The risks and benefits of the procedure as well as a full d escription of our services here and current unavailability of surgical backup were fully explained to the patient and/or their significant other prior to the catheterization. The Timeout was completed, verifying the correct patient and procedure. The patient's procedural site was prepped and draped in the usual fashion. Local anesthetic was given subcutaneously to right groin region with Lidocaine 2%. Local anesthetic was given subcutaneously to right groin region with Lidocaine 2%. Using a modified Seldinger technique, arterial access was obtained via the right femoral artery, a 5Fr sheath was inse rted. Left Coronary Artery selective angiography was performed in multiple views using a 5 Fr. JL4 c atheter. Right Coronary Artery selective angiography was then performed in multiple views using a 5 F r. 3DRC (Oscar) catheter. Saphenous Vein graft to the 1st Diag selective angiography was performed in multiple views using a 5 Fr. 3DRC (Oscar) catheter. Left internal mammary artery graft to the LAD selective angiography was performed in multiple views using a 5 Fr. 3DRC (Oscar) catheter. Asc ending (root) aorta selective angiography was then performed in single view. Ascending (root) aorta s elective angiography was then performed in single view. Right iliac selective angiography was then pe rformed in single view.The arterial sheath was pulled and a Perclose closure device was deployed for hemostasis CORONARY ANGIOGRAPHY DOMINANCE: Right Dominant LEFT HEART ASSESSMENT Left Ventricular Ejection Fraction: Not assessed Eccentric palque noted in the left subclavian artery LEFT MAIN: is occluded LEFT ANTERIOR DECENDING ARTERY: OSTIAL LAD: is occluded CIRCUMFLEX ARTERY: is occluded RIGHT CORONARY ARTERY: OSTIAL RCA: is occluded GRAFTS: Saphenous Vein graft to the RCA is totally occluded Saphenous Vein graft to the CIRC is totally occluded Saphenous Vein graft to the 1st Diagonal has a distal lesion of 95 % CLARK graft to the Mid LAD is patent COLLATERAL FLOW: Collateral flow from Left to Right COMPLICATIONS No Complications PROCEDURE MEDICATIONS Versed 1 mg IV Fentanyl 50 mcg IV Oxygen: 2 L/min via nasal cannula Adenosine 48 mcg IC @ 05/23/2018 08:34:03 Heparin 6000 unit(s) IV 05/23/2018 08:12:27 Heparin 1000 unit(s) IV 05/23/2018 08:24:42 Nipride 100 mcg IV 05/23/2018 08:31:35 Nitro 100 mcg IC 05/23/2018 08:34:46 Plavix 300 mg PO 05/23/2018 08:51:53 IV Bolus: .9 NaCl 500 ml total 05/23/2018 08:51:44 SUMMARY OF HEMODYNAMIC DATA Time AIR REST ECG 07:24:40 AO 117/43 (68) SA 07:43:16 AO 133/36 (72) 08:02:47 Signed By Chai Dave MD On 05/23/2018 09:31:26 Signed By Chai Dave MD On 05/23/2018 08:29:08 Chai Dave MD
--- NOTE | 2018-05-23 08:54 | EKG12_ITS ---
Test Reason : PCI Blood Pressure : / mmHG Vent. Rate : 051 BPM Atrial Rate : 051 BPM P-R Int : 170 ms QRS Dur : 092 ms QT Int : 470 ms P-R-T Axes : 071 070 090 degrees QTc Int : 433 ms Sinus bradycardia Confirmed by JANESSA HOLLIS, MAHENDRA ([id number]), editorial specialist SENG AZEVEDO ([id number]) on 05/25/2018 2:31:18 PM Referred By: CATHERINE Confirmed By:MAHENDRA RIDDLE MD
[2018-05-23 08:56] LABS: ACT Activated Clotting Time 230 sec (74-137)
[2018-05-23 08:56] LABS: ACT Activated Clotting Time 224 sec (74-137)
--- NOTE | 2018-05-23 09:00 | CL.I_ITS ---
Patient Name: TAMELA CISNEROS Study Date: 05/23/2018 Performing: Cherelle Parson MD Ht: 61.81 inches 157 cm : 1950 Wt: 149.91 lbs 68 kg Age: 67 Gender: female BSA: 1.69 PROCEDURE(S) PERFORMED DC11-AO ROOT ANGIO WITH HEART CATH [id number] AND/OR PTCA, SINGLE GRAFT CLINICAL PROFILE AND CO-MORBIDITIES Indications: Worsening Angina Heart Failure: None Stress/Imaging Stress/Image Study Performed: No Angina Classification Anginal Classification w/in 2 Weeks: CCS III CAD Presentations: Unstable angina. CONCLUSIONS Successful PTCA/KENYETTA SVG to Diag using Elunir 3.5x12 mm RECOMMENDATIONS ASA Indefinitley Plavix for at least 12 months INTERVENTION INFORMATION LESION SITE: Vein > to 1st Diagonal Segment Number: 15-First diagonal branch segment - 1st Diag , [place] Location: Body Lesion Complexity: High/C Pre Stenosis: 95 % Pre intervention CHLOE flow: 3 PROCEDURE: Drug Eluting Stent with pre dilatation. Post Stenosis: 0 % Post intervention CHLOE flow: 3 Lesion Devices: Terumo .014 Runthrough Extra Floppy 180cm straight Cordis 6 Fr JR4 100cm Guide Catheter Martin Sci EMERGE MR 2.50x08 BALLOON Cardinal Elunir KENYETTA RX 3.5x12 COMPLICATIONS No Complications PROCEDURE MEDICATIONS Versed 1 mg IV Fentanyl 50 mcg IV Oxygen: 2 L/min via nasal cannula Adenosine 48 mcg IC @ 05/23/2018 08:34:03 Heparin 6000 unit(s) IV 05/23/2018 08:12:27 Heparin 1000 unit(s) IV 05/23/2018 08:24:42 Nipride 100 mcg IV 05/23/2018 08:31:35 Nitro 100 mcg IC 05/23/2018 08:34:46 Plavix 300 mg PO 05/23/2018 08:51:53 IV Bolus: .9 NaCl 500 ml total 05/23/2018 08:51:44 SUMMARY OF HEMODYNAMIC DATA Time AIR REST ECG 07:24:40 AO 117/43 (68) SA 07:43:16 AO 133/36 (72) 08:02:47 Signed By Cherelle Parson MD On 05/23/2018 08:59:58 Cherelle Parson MD
[2018-05-23] MEDS: 0.9% Normal Saline 1,000 ML 100 ML IV (09:30)
--- NOTE | 2018-05-23 10:22 | CRPHASE1 ---
Patient Data/Charges Phase II Referral:: [facility] Start Phase II:: FOLLOWING OFFICE VISIT WITH BISQUE KILN PLACER Risk Factors/Lifestyle Smoking Status: Never smoker Hx Hypertension: Yes Hx Diabetes Mellitus Type 1: No Hx Diabetes Mellitus Type 2: No Hx Metabolic Disorders: Yes Hx Dyslipidemia: Yes Hx Obesity: No Height: 5 ft 2 in - BMI 27.6 Post-Menopausal: Yes Stress: Home/Family Substance Abuse: No Risk Factor for Sedentary Lifestyle: Moderate Risk Past Cardiac Illness: Coronary Artery Disease, Previous PCI w/Stent, Coronary Artery Bypass Graft Laboratory Values: Cardiac Rehab Phase I Labs Triglycerides 145 mg/dL (-199) 05/23/18 05:50 Cholesterol 411 mg/dL (200) H 05/23/18 05:50 LDL Cholesterol 335 mg/dL (0-130) H 05/23/18 05:50 HDL Cholesterol 47 mg/dL (40-) 05/23/18 05:50 Phase I Education Given On:: [place], Nutrition, Antiplatelet medication Issues Affecting Care:: None Knowledge of Condition:: Yes Learning Preferences: Verbal, Written - FAMILY AT BEDSIDE Hospital Course Presenting Symptoms:: WORSENING ANGINA Medical/Surgical History [place]:: No Angina:: Yes CAD:: Yes Diabetes:: No Hypertension:: Yes Dyslipidemia:: Yes PVD:: Yes - HX CAROTID ENDARTARECTOMY CABG: Yes PTCA:: Yes Discharge/Home/Social Eval Discharge Disposition: Home
--- NOTE | 2018-05-23 10:25 | CRPHASE1_ITS ---
Patient Data/Charges Phase II Referral:: [facility] Start Phase II:: FOLLOWING OFFICE VISIT WITH VICE PRESIDENT PAYMENT Risk Factors/Lifestyle Smoking Status: Never smoker Hx Hypertension: Yes Hx Diabetes Mellitus Type 1: No Hx Diabetes Mellitus Type 2: No Hx Metabolic Disorders: Yes Hx Dyslipidemia: Yes Hx Obesity: No Height: 5 ft 2 in - BMI 27.6 Post-Menopausal: Yes Stress: Home/Family Substance Abuse: No Risk Factor for Sedentary Lifestyle: Moderate Risk Past Cardiac Illness: Coronary Artery Disease, Previous PCI w/Stent, Coronary Artery Bypass Graft Laboratory Values: Cardiac Rehab Phase I Labs Triglycerides 145 mg/dL (-199) 05/23/18 05:50 Cholesterol 411 mg/dL (200) H 05/23/18 05:50 LDL Cholesterol 335 mg/dL (0-130) H 05/23/18 05:50 HDL Cholesterol 47 mg/dL (40-) 05/23/18 05:50 Phase I Education Given On:: [place], Nutrition, Antiplatelet medication Issues Affecting Care:: None Knowledge of Condition:: Yes Learning Preferences: Verbal, Written - FAMILY AT BEDSIDE Hospital Course Presenting Symptoms:: WORSENING ANGINA Medical/Surgical History [place]:: No Angina:: Yes CAD:: Yes Diabetes:: No Hypertension:: Yes Dyslipidemia:: Yes PVD:: Yes - HX CAROTID ENDARTARECTOMY CABG: Yes PTCA:: Yes Discharge/Home/Social Eval Discharge Disposition: Home
--- NOTE | 2018-05-23 10:27 | CRPH1.INST_ITS ---
General Education CAD and cardiac anatomy and function:: Patient communicates acknowledgment, Family communicates acknowledgment Explanation of diagnoses and procedures:: Patient communicates acknowledgment, Family communicates acknowledgment Sign/Symptoms of UT:: Patient communicates acknowledgment, Family communicates acknowledgment Antiplatelet therapy: Patient communicates acknowledgment, Family communicates acknowledgment Proper use of NTG-SL: Not instructed Emergency procedures and activation of EMS: Patient communicates acknowledgment, Family communicates acknowledgment Compliance of all prescribed medications: Patient communicates acknowledgment, Family communicates acknowledgment - FAMILY AT BEDSIDE Smoking Patient Nicotine/Smoking Risk Factors Are:: Never smoked Dyslipidemia Patient Dyslipidemia Risk Factors Are:: Total Cholesterol, HDL, LDL Recommendations Include:: Lipid profile provided, Reviewed NCEP/ATP guidelines, Therapeutic Lifestyle Change dietary guidelines Dyslipidemia Response Code:: Patient communicates acknowledgment, Family co mmunicates acknowledgment Overweight/Obesity Patient Overweight/Obesity Risk Factors Are:: BMI Normal [24-29 & > 65 years old] Hypertension Recommendations Include:: Maintain BP <130/85, DASH dietary guidelines, Decrease/maintain normal body weight, Moderation of ETOH Hypertension:: Patient communicates acknowledgment, Family communicates acknowledgment Heart Disease Patient Heart Disease Risk Factors Are:: Family history of heart disease < 65 years old, Previous cardiac event Recommendations Include:: Educated family members of their risk, Educated family members of importance of prevention of heart disease Heart Disease Response Code:: Patient communicates acknowledgment, Family communicates acknowledgment Diabetes Patient Diabetes Risk Factors Are:: No documented hx of diabetes Metabolic Syndrome Patient Metabolic Syndrome Risk Factors Are [3 of 5]:: High triglyceride >150, Hypertension, Low HDL <40 [male] or < 50 [female] Recommendations Include:: Reinforce compliance to risk factor modifications, Encouraged follow-up with Primary Care Physician Metabolic Syndrome Response Code:: Patient communicates acknowledgment, Family communicates acknowledgment Sedentary Patient Sedentary Risk Factors Are:: Lack of regular exercise Recommendations Include:: Aerobic exercise 5-7 times/week for 20-30 minutes continuously, Benefits of regular exercise, Discussed home walking program, Monitored Outpatient Cardiac Rehab Sedentary Response Code:: Patient communicates acknowledgment, Family communicates acknowledgment Stress Recommendations Include:: Identification of stressors, and assessment of coping skills, Stress management techniques Stress Response Code:: Patient communicates acknowledgment, Family communicates acknowledgment
--- NOTE | 2018-05-23 10:57 | CDU_ITS ---
Reason For Study: Carotid stenosis Rt. Velocities/BP Lt. Velocities/BP Prox CCA 77.4/17.6 cm/sec. Prox CCA 95.6/17.0 cm/sec. Mid CCA 75.6/15.8 cm/sec. Mid CCA 89.7/15.8 cm/sec. Dist CCA 69.8/20.5 cm/sec. Dist CCA 80.3/17.0 cm/sec. Prox ICA 199.0/57.0 cm/sec. Prox ICA 140.0/22.0 cm/sec. Mid ICA 150.0/39.7 cm/sec. Mid ICA 102.0/26.0 cm/sec. Dist ICA 79.7/19.9 cm/sec. Dist ICA 86.3/23.6 cm/sec. Rt. ICA/CCA = 2.6. Lt. ICA/CCA = 1.6. Prox ECA 151.0/20.6 cm/sec. Prox ECA 154.0/13.4 cm/sec. Rt. Vert. 78.6/10.6 cm/sec. Lt. Vert. 91.9/25.9 cm/sec. Right Extracranial There is intimal thickening but no significant atherosclerotic plaque noted in the right common carotid artery. There is heterogeneous, irregular atherosclerotic plaque noted in the right internal carotid artery. There is heterogeneous, irregular atherosclerotic plaque noted in the right external carotid artery. Antegrade flow is noted in the right vertebral artery. Left Extracranial There is intimal thickening but no significant atherosclerotic plaque noted in the left common carotid artery. There is heterogeneous, irregular atherosclerotic plaque noted in the left internal carotid artery. There is heterogeneous, irregular atherosclerotic plaque noted in the left external carotid artery. Antegrade flow is noted in the left vertebral artery. There is heterogeneous, irregular atherosclerotic plaque noted in the left bulb. Procedure Carotid Duplex [id number]. Exam performed portable in patient room. 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 Post operative changes of the left carotid bulb and proximal internal carotid with 50-69% stenosis. Moderate disease left external carotid Patent and antegrade vertebrals bilaterally Ordering Physician: Monico Terrazas Referring Physician: Andrea Mccallum Performed By: Italia Shane RVT
--- NOTE | 2018-05-23 14:24 | CHAPLAIN ---
Type of Pastoral Visit _x__ Initial Visit ___ Follow-up Visit ___ On-call Visit ___ General Patient Visit ___ Spiritual Assessment ___ Family Conference ___ Bereavement ___ Rapid Response ___ Code Blue ___ Other (describe below) Pastoral Care Referral From _x__ Patient ___ Family ___ Nurse ___ Physician ___ Transit Coach Operator ___ Relations Specialist ___ Other (describe below) Sacrament/Intervention _x__ Active listening ___ Anointing ___ Sabianist ___ Bereavement ___ Communion _x__ [place] exploration ___ _x__ Life review _x__ Prayer ___ Reconciliation ___ Sacrament of Sick ___ Supportive presence ___ Wedding ___ Other (describe below) Pastoral Comments patient presents as very positive outlook and speaks about [place] in God and how she has a blessed life; pt open to spiritual conversation and prayer
--- NOTE | 2018-05-23 17:19 | PCM.PROGNOTE ---
Patient Problems: Active and Suspected Problems SOB (shortness of breath) (Acute) Subjective: Patient was seen and examined today in ICU, she underwent placement of a drug-eluting stent today for occlusive coronary artery disease. Cardiology recommended the patient undergo a carotid duplex scan which I ordered today. At the time of my examination today, patient does not complain of any chest pain or shortness of breath, her vital signs appear stable - Physical Exam General: Alert, Oriented x3, Cooperative, No apparent distress HEENT: Atraumatic, PERRLA, EOMI, Normocephalic Oral: Moist Mucosa Neck: Supple, No Nuchal Rigidity, Trachea Midline, Thyroid Normal Size and Texture Lungs: Clear to auscultation, Normal air movement, No rhonchi, No wheeze, No rales Cardiovascular: Regular rate, Regular Rhythm, Normal S1, Normal S2, No murmurs, No Ectopic Activity, PMI Normal, No rub noted, No Gallop Abdomen: Bowel Sounds Present, Soft, Non Tender, Non-Distended Extremities: No clubbing, No cyanosis, No edema, Capillary Refill Less than 3 Seconds Skin: No rashes, No breakdown Musculoskeletal: No Tenderness to Palpation of Joints or Extremities Neurological: Cranial nerves II-XII grossly intact, Neuro grossly intact, Sensory exam intact to light touch and pain, Coordination normal Psych/Mental Status: Normal Affect, Appropriate, Alert and oriented to time, place, person, mood and affect Vital Signs Temp Pulse Resp BP Pulse Ox 97.8 F 54 L 22 H 121/105 H 97 05/23/18 16:00 05/23/18 17:00 05/23/18 17:00 05/23/18 17:00 05/23/18 17:00 Oxygen Flow Rate (L/min) 98 Oxygen Delivery Method Room Air Weight: 68.402 kg Body Mass Index (BMI) 27.6 Intake and Output for Last 24 Hours 05/21/18 05/22/18 05/23/18 23:59 23:59 23:59 Intake Total 500 / 500 625 / 625 Balance 500 / 500 625 / 625 Laboratory Tests Past 24 Hrs 05/22/18 05/23/18 05/23/18 19:01 03:45 05:50 WBC 7.9 RBC 4.95 Hgb 14.5 Hct 43.7 MCV 88.3 MCH 29.3 MCHC 33.2 RDW 13.6 RDW Differential 43.9 Plt Count 229 MPV 10.5 Immature Gran % (Auto) 0.100 Neut % (Auto) 62.8 Lymph % (Auto) 25.6 [place] % (Auto) 9.2 Eos % (Auto) 1.9 Baso % (Auto) 0.4 Absolute Neuts (auto) 5.0 Absolute Lymphs (auto) 2.03 Total Counted Not Reportable PT INR APTT Activated Clotting Time Sodium Potassium Chloride Carbon Dioxide Anion Gap BUN Creatinine Estim Creat Clear Calc Est GFR (MDRD) Af Amer Est GFR (MDRD) Non-Af BUN/Creatinine Ratio Glucose Calcium Troponin I 0.035 Triglycerides Cholesterol LDL Cholesterol VLDL Cholesterol HDL Cholesterol Urine Color Yellow Urine Clarity Clear Urine pH 7.0 Ur Specific [place] 1.010 Urine Protein 15 H Urine Glucose (UA) Normal Urine Ketones 5 H Urine Occult Blood Negative Urine Nitrite Negative Urine Bilirubin Negative Urine Urobilinogen Normal Ur Leukocyte Esterase 500 H Urine RBC 0 SEEN Urine WBC 5-10 SEEN Ur Squamous Epith Cells 0-5 SEEN Urine Bacteria 0 SEEN Urine Mucus 0 SEEN 05/23/18 05/23/18 05/23/18 05:50 05:50 08:21 WBC RBC Hgb Hct MCV MCH MCHC RDW RDW Differential Plt Count MPV Immature Gran % (Auto) Neut % (Auto) Lymph % (Auto) [place] % (Auto) Eos % (Auto) Baso % (Auto) Absolute Neuts (auto) Absolute Lymphs (auto) Total Counted PT 12.8 INR 1.0 APTT 30.3 Activated Clotting Time 230 H Sodium 140 Potassium 4.1 Chloride 104 Carbon Dioxide 27.0 Anion Gap 9 BUN 12 Creatinine 0.79 Estim Creat Clear Calc 41.99 Est GFR (MDRD) Af Amer 92 Est GFR (MDRD) Non-Af 76 BUN/Creatinine Ratio 15.1 Glucose 117 H Calcium 9.1 Troponin I Triglycerides 145 Cholesterol 411 H LDL Cholesterol 335 H VLDL Cholesterol 29 HDL Cholesterol 47 Urine Color Urine Clarity Urine pH Ur Specific [place] Urine Protein Urine Glucose (UA) Urine Ketones Urine Occult Blood Urine Nitrite Urine Bilirubin Urine Urobilinogen Ur Leukocyte Esterase Urine RBC Urine WBC Ur Squamous Epith Cells Urine Bacteria Urine Mucus 05/23/18 08:43 WBC RBC Hgb Hct MCV MCH MCHC RDW RDW Differential Plt Count MPV Immature Gran % (Auto) Neut % (Auto) Lymph % (Auto) [place] % (Auto) Eos % (Auto) Baso % (Auto) Absolute Neuts (auto) Absolute Lymphs (auto) Total Counted PT INR APTT Activated Clotting Time 224 H Sodium Potassium Chloride Carbon Dioxide Anion Gap BUN Creatinine Estim Creat Clear Calc Est GFR (MDRD) Af Amer Est GFR (MDRD) Non-Af BUN/Creatinine Ratio Glucose Calcium Troponin I Triglycerides Cholesterol LDL Cholesterol VLDL Cholesterol HDL Cholesterol Urine Color Urine Clarity Urine pH Ur Specific [place] Urine Protein Urine Glucose (UA) Urine Ketones Urine Occult Blood Urine Nitrite Urine Bilirubin Urine Urobilinogen Ur Leukocyte Esterase Urine RBC Urine WBC Ur Squamous Epith Cells Urine Bacteria Urine Mucus Medical Necessity - Tobacco Use Smoking Status: Never smoker Assessment/Plan All Active Problems SOB (shortness of breath) (Acute) #1 unstable angina-status post drug-eluting stent placement and PTCA to saphenous vein graft to first diagonal segment-patient will remain in ICU tonight, she will be reassessed tomorrow for possible discharge #2 hypertension #3 hyperlipidemia #4 mild pulmonary hypertension-pulmonary artery systolic pressure is 34 mm on echocardiogram today #5 carotid occlusive [id number]% stenosis proximal right internal carotid artery, moderate disease left external carotid, moderate disease right external carotid, postoperative changes of the left carotid bulb and proximal left internal carotid with 50-69% stenosis-no intervention required at this time
[2018-05-23] MEDS: Atorvastatin Calcium 40 MG Tablet PO (21:37)
[2018-05-23] MEDS: Heparin Injection (Vial) 5,000 UNIT/ML VIAL 5000 UNIT SC (21:37)
[2018-05-24] VITALS (14 sets, daily range): BP systolic 128–195; BP diastolic 42–89; PULSE 49–63; RESP 12–19; TEMP 36.4–37; O2SAT 91–100
[2018-05-24 04:49] LABS: Hematocrit 40.4 % (37-47); Hemoglobin 13.5 g/dl (12.0-15.0); Mean Corp Hgb Conc 33.4 g/gl (32-36); Mean Corpuscular Hgb 29.5 pg (27.0-32.0); Mean Corpuscular Volume 88.4 fL (81-99); Mean Platelet Vol. 10.6 fl (6.2-12.0); Platelet Count 201 K/mm3 (150-450); RBC Distribution Width CV 13.6 % (11.6-14.6); RBC Distribution Width SD 43.5 fl (35.1-43.9); Red Blood Count 4.57 M/mm3 (4.2-5.4); White Blood Count 9.4 K/mm3 (4.4-11.0)
[2018-05-24 04:53] LABS: Scan Indicated on CBC? Y/N NO
[2018-05-24 04:59] LABS: Anion Gap 9 (5-15); BUN 15 mg/dL (7-18); BUN/Creat Ratio 21.8 RATIO (10-20); Calcium,Total 8.8 mg/dL (8.5-10.1); Chloride 107 mmol/L (98-107); Creatinine, Serum 0.69 mg/dL (0.55-1.02); EST Glomerular Filtration Rate 90 mL/min (>60); Est Glom Filt Rate - Afr Amer 109 mL/min (>60); Estimated Creatinine Clearance 41.99 ml/min; Glucose 102 mg/dL (74-106); Potassium 4.1 mmol/L (3.5-5.1); Sodium Level 142 mmol/L (136-145)
[2018-05-24] MEDS: Aspirin 325 MG Tablet PO (07:43)
[2018-05-24] MEDS: Clopidogrel Bisulfate 75 MG Tablet PO (07:43)
[2018-05-24] MEDS: Carvedilol 25 MG Tablet PO (07:43)
[2018-05-24] MEDS: Acetaminophen 325 MG Tablet 650 MG PO (07:43)
[2018-05-24] MEDS: amLODIPine 10 MG Tablet PO (07:43)
[2018-05-24] MEDS: Lisinopril 20 MG Tablet PO ×2 (07:43→11:05)
--- NOTE | 2018-05-24 08:28 | PN.CARD_ITS ---
Subjectve: Patient seen and evaluated. Appears to be doing well. Had uneventful night. Objective: Vital Signs Temp Pulse Resp BP Pulse Ox 97.7 F L 58 L 13 164/60 H 99 05/24/18 08:00 05/24/18 08:00 05/24/18 08:00 05/24/18 08:00 05/24/18 08:00 Oxygen Flow Rate (L/min) 98 Oxygen Delivery Method Room Air Weight: 150 lb 12.8 oz Body Mass Index (BMI) 27.6 Intake and Output for Last 24 Hours 05/22/18 05/23/18 05/24/18 23:59 23:59 23:59 Intake Total 500 / 500 1576 / 1576 400 / 400 Output Total 400 / 400 400 / 400 Balance 500 / 500 1176 / 1176 0 / 0 General: Awake, Alert, Oriented x 3 HEENT: PERRL, EOMI, Sclera Non Icteric Neck: Supple, Good ROM, No Lymph Node Enlargement Lungs: Clear to auscultation Cardiovascular: Regular Rhythm, Normal S1, Normal S2, No Murmurs, No Rubs, No Gallops Vascular: No Carotid Bruits, Normal Femoral Pulses, Normal Radial Pulses, Normal Dorsalis Pedal Pulse, Normal Posterior Tibial Pulses Abdomen: Bowel Sounds Present, Soft, Non Tender, No HSM, No Organomegaly Extremities: No Cyanosis, No Clubbing, No edema Neurological: No Focal Motor or Sensory Deficit 05/24/18 04:30: WBC 9.4, RBC 4.57, Hgb 13.5, Hct 40.4, MCV 88.4, MCH 29.5, MCHC 33.4, RDW 13.6, RDW Differential 43.5, Plt Count 201, MPV 10.6 05/24/18 04:30: Sodium 142, Potassium 4.1, Chloride 107, Carbon Dioxide 26.0, Anion Gap 9, BUN 15, Creatinine 0.69, Est GFR (MDRD) Af Amer 109, Est GFR (MDRD) Non-Af 90, BUN/Creatinine Ratio 21.8 H, Glucose 102, Calcium 8.8 Rhythm: EKG: ECHO: Stress Test: Cardiac Cath: PCI: CT Surgery: Holter monitor: EPS: PPM: CXR: Chest CT Scan: Medical Necessity - Tobacco Use Smoking Status: Never smoker Assessment/Plan 1. Chest pain.-Unstable angina * She presents with chest discomfort which is concerning for unstable angina. She does have EKG changes which appear to be dynamic. I did express to her that the appropriate modality would be to pursue a left heart catheterization to assess her coronary anatomy and to guide therapy. * She underwent a cardiac catheterization which demonstrated the following: Left main coronary artery total distal occlusion. Left anterior descending artery totally occluded. Left circumflex artery totally occluded. Right coronary artery totally occluded. Saphenous vein graft to right coronary artery totally occluded. Saphenous vein graft to the circumflex artery. Totally occluded. Saphenous vein graft to the first diagonal vessel with a 95% mid segment in graft stenosis. Distal mild diffuse disease is noted. Left internal mammary artery to the left anterior descending artery is patent with left to right collaterals. Eccentric plaque noted in the mid left subclavian artery. Based on the above angiographic findings percutaneous coronary angioplasty was recommended. Patient underwent angioplasty and stenting of the saphenous vein graft successfully. Has done well there has been no decrease in hemoglobin and no increase in creatinine. EKG today is normal with no acute changes. 2. Hypertension * The patient has a history of known hypertension currently on beta-abel amlodipine and GIANLUCA inhibitor which will be continued. * Will recommend increasing lisinopril to 40 mg once a day 3. Risk factor modification * Will consider high intensity statin. Patient has very high LDL cholesterol. * 4. Peripheral vascular disease * Patient has a history of left carotid endarterectomy. Would recommend a carotid ultrasound to evaluate the above. This can be done as an outpatient. * * Patient can be discharged later today. * Thank you for allowing me to participate in the care of your patient. Please don't hesitate to call if any issues arise
--- NOTE | 2018-05-24 09:00 | EKG12_ITS ---
Test Reason : AM EKG Blood Pressure : / mmHG Vent. Rate : 059 BPM Atrial Rate : 059 BPM P-R Int : 152 ms QRS Dur : 088 ms QT Int : 440 ms P-R-T Axes : 069 068 070 degrees QTc Int : 435 ms Sinus bradycardia Otherwise normal ECG Confirmed by JANESSA HOLLIS, MAHENDRA ([id number]), electronic news gathering editor SENG AZEVEDO ([id number]) on 05/25/2018 2:28:52 PM Referred By: LESLIE Confirmed By:MAHENDRA RIDDLE MD
--- NOTE | 2018-05-24 09:15 | CASEMGMT ---
MEÑO ROSEN INITIAL REVIEW ASSESSMENT D/C PLAN: HOME. Face to Face with patient for initial transition planning/care coordination assessment. MEÑO ROSEN introduced self and role at [facility]. Care providers, pharmacy, and demographics verified. PCP: Dr Andrea Mccallum Preferred Pharmacy: [facility] Insurance: [facility] A[facility] Prescription Benefit: None and denies needs. States able to pay for her prescriptions without problems. Living Will/HPOA: States she does not have either and is not interested in further information. LNOK: Lives with . 2 daughters supportive. Living Arrangements: Lives with . Lives in a one-story home. 12 steps to basement where she does laundry, but also has access to basement from outside where there are no steps Transportation: Drives. Has transportation home on D/C DME: Denies using any DME and denies needs. Pt's plans on D/C: Wishes to return home. Denies needs. CM to follow for any further discharge planning needs that may arise. Brian STEPHEN RN, CM
--- NOTE | 2018-05-24 10:55 | DCINST_ITS ---
- Discharge Diagnoses Current Active Problems: Current Active and Chronic Problems CAD (coronary artery disease) (Chronic) HLD (hyperlipidemia) (Chronic) HTN (hypertension) (Chronic) SOB (shortness of breath) (Acute) You will use the following diet at home:: No restrictions Your food should be the consistency of: Regular Your liquids should be the consistency of: Regular/Thin Discharge Activity: Return to Normal Activity Weight Bearing Status: Full weight bearing Allergies/Adverse Reactions: Allergies amoxicillin [From Augmentin] Adverse Reaction (Verified 05/22/18 12:50) Nausea/Vom/Diarrhea clavulanic acid [From Augmentin] Adverse Reaction (Verified 05/22/18 12:50) Nausea/Vom/Diarrhea Medications to take at Discharge Amlodipine [Norvasc] 10 mg PO DAILY 05/22/18 Carvedilol [Coreg] 25 mg PO DAILY 05/22/18 Aspirin E.C. [Ecotrin] 81 mg PO DAILY@0800 #1 tablet 05/24/18 Atorvastatin Calcium [Lipitor] 40 mg PO QHS #90 tablet 05/24/18 Benazepril HCl [Lotensin] 40 mg PO DAILY #90 tablet 05/24/18 Clopidogrel Bisulfate [Plavix] 75 mg PO DAILY #90 tablet 05/24/18 Nitroglycerin [Nitrostat] 0.4 mg SUBLINGUAL Q5M PRN tablet 05/24/18 The following prescriptions were given: Aspirin E.C. [Ecotrin] 81 mg PO DAILY@0800 #1 tablet Atorvastatin Calcium [Lipitor] 40 mg PO QHS #90 tablet Benazepril HCl [Lotensin] 40 mg PO DAILY #90 tablet Clopidogrel Bisulfate [Plavix] 75 mg PO DAILY #90 tablet Primary Care Physician: Andrea Mccallum MD [Primary Care Provider] - Please follow up with your Primary Care Physician in: in 2 weeks Test Results: Test results from this visit will be discussed in further detail at your follow- up appointment, if applicable. Please Follow Up With: Chai Dave MD When: as directed
--- NOTE | 2018-05-25 10:31 | PCM.DC.SUM ---
Discharge Date and Diagnosis Date of Admission: 05/22/18 Date of Discharge: 05/24/18 - Primary Discharge Diagnosis #1 unstable angina #2 occlusive coronary artery disease of saphenous vein graft to first diagonal segment, with drug-eluting stent placement and PTCA to segment #3 hypertension #4 hyperlipidemia #5 mild pulmonary hypertension #6 carotid occlusive disease not requiring intervention - Secondary Discharge Diagnosis Chronic Problems CAD (coronary artery disease) (Chronic) HLD (hyperlipidemia) (Chronic) HTN (hypertension) (Chronic) Hospital Course and Treatment Operations: None Procedures: Cardiac catheterization - With drug-eluting stent placement and PTCA to saphenous vein graft to first diagonal segment Summary of Care Provided: The patient is a 67 year old F who was seen in the emergency room at [facility] with chief complaint of chest pain and mid back pain. Patient had a past history of coronary artery disease with cardiac bypass surgery in the past and also cardiac stents. Evaluation in the emergency room included a chest x-ray which showed no acute process, EKG showed a sinus rhythm with anterolateral ST depression which was unchanged from 2007. CBC was unremarkable, chemistry study showed a potassium 3.4 but was otherwise unremarkable. Troponin was not elevated. Patient was admitted to PCU initially, she was seen in consultation by cardiology and underwent a cardiac catheterization on 05/23/18 which showed coronary occlusive disease in the saphenous venous graft to diagonal coronary artery. She underwent intervention with PTCA and drug-eluting stent placement, she did well post procedure and was transferred to the ICU for further care. The following day she underwent carotid duplex study which showed occlusive carotid disease not requiring intervention, she also had an echocardiogram which showed preserved EF but evidence of pulmonary hypertension. Patient's medications were adjusted by cardiology. On 05/24/18, patient was seen and examined and felt to be in stable condition for discharge home Physical exam: On examination she appeared in good health and spirits. Vital signs as documented. Skin warm and dry and without overt rashes. Neck without JVD. Lungs clear. Heart exam notable for regular rhythm, normal sounds and absence of murmurs, rubs or gallops. Abdomen unremarkable and without evidence of organomegaly, masses, or abdominal aortic enlargement. Extremities nonedematous. Neuro: Cranial nerves II through XII are grossly intact, sensation to light touch and pain intact, no focal deficits were noted. Psych: Patient is alert and oriented x3, she does not appear depressed or anxious. - Physical Exam Vital Signs Temp Pulse Resp BP Pulse Ox 97.6 F L 55 L 16 146/49 H 100 05/24/18 12:00 05/24/18 12:00 05/24/18 12:00 05/24/18 12:00 05/24/18 12:00 Oxygen Flow Rate (L/min) 98 Oxygen Delivery Method Room Air Weight: 68.402 kg Body Mass Index (BMI) 27.6 Intake and Output for Last 24 Hours 05/23/18 05/24/18 05/25/18 23:59 23:59 23:59 Intake Total 1576 / 1576 400 / 400 Output Total 400 / 400 400 / 400 Balance 1176 / 1176 0 / 0 Discharge Activity: Return to Normal Activity Weight Bearing Status: Full weight bearing Home Medications: Medications to take at Discharge Amlodipine [Norvasc] 10 mg PO DAILY 05/22/18 Carvedilol [Coreg] 25 mg PO DAILY 05/22/18 Aspirin E.C. [Ecotrin] 81 mg PO DAILY@0800 #1 tablet 05/24/18 Atorvastatin Calcium [Lipitor] 40 mg PO QHS #90 tablet 05/24/18 Benazepril HCl [Lotensin] 40 mg PO DAILY #90 tablet 05/24/18 Clopidogrel Bisulfate [Plavix] 75 mg PO DAILY #90 tablet 05/24/18 Nitroglycerin [Nitrostat] 0.4 mg SUBLINGUAL Q5M PRN tablet 05/24/18 Following Prescrptions Were Given to Patient: Aspirin E.C. [Ecotrin] 81 mg PO DAILY@0800 #1 tablet Atorvastatin Calcium [Lipitor] 40 mg PO QHS #90 tablet Benazepril HCl [Lotensin] 40 mg PO DAILY #90 tablet Clopidogrel Bisulfate [Plavix] 75 mg PO DAILY #90 tablet Primary Care Physician: Andrea Mccallum MD [Primary Care Provider] - Please follow up with your Primary Care Physician in: in 2 weeks Please Follow Up With: Chai Dave MD When: as directed Disposition: Home Minutes spent on discharge:: 32 Patient Condition:: Stable Medical Necessity - Tobacco Use Smoking Status: Never smoker Meaningful Use Info Meaningful Use Diagnoses (Choose all that apply): None applicable Code Visit Inpatient E&M: 39756 Disch Hosp
== END 2018-05-24 12:25 | disposition home or self-care (01) | DRG 247 ==
LOC: ED 14:27 → PCU 15:15 → ICU 05-23 08:21
PROVIDERS: Internal Medicine Cardiovascular Disease; Admitting Provider Family Medicine; Emergency Provider Emergency Medicine; Family Provider Family Medicine; PCP Family Medicine; Visit Provider Internal Medicine
DX: I25.710 Atherosclerosis of autologous vein coronary artery bypass graft(s) with unstable angina pectoris (principal); I10 Essential (primary) hypertension; E78.5 Hyperlipidemia, unspecified; I27.20 Pulmonary hypertension, unspecified; Z95.5 Presence of coronary angioplasty implant and graft; I65.23 Occlusion and stenosis of bilateral carotid arteries; Z95.1 Presence of aortocoronary bypass graft
CPT/HCPCS: 36415; 71045; 80048; 80061; 81001; 83735; 84484; 85025; 85027; 85347; 85610; 85730; 92937; 93005; 93306; 93455; 93567; 93880; 99152; 99153; 99285; C1874; J0153; J7030; J7050; Q9957; Q9967; A4216; C1725; C1760; C1769; C1887; C9604; J0583; J3490

== ENCOUNTER → 2019-06-06 | Outpatient (CLI) | payer MEDICARE, SELFPAY ==
[2019-06-06 11:38] VITALS: BMI 27.2
--- NOTE | 2019-06-06 12:25 | RAD_ITS ---
STUDY: X-RAY CHEST REASON FOR EXAM: Female, 68 years old. Chest pain TECHNIQUE: PA and lateral views of the chest. COMPARISON: 05/22/2018 FINDINGS: Status post median sternotomy. The lungs are clear and expanded. There is no demonstrated pleural abnormality. There is moderate cardiac enlargement. Normal mediastinum and abdi. Normal visualized pulmonary arteries. Normal visualized aortic arch and descending thoracic aorta. Normal visualized thoracic spine. Normal visualized ribs, clavicles, and shoulders. There is no demonstrated abnormality of the visualized soft tissue structures of the upper abdomen. RAD/Chest PA and Lateral IMPRESSION: No active disease. Electronically Signed: Venancio Tomas MD at 15:25 EDT Tel , Service support ,
[2019-06-06 13:29] LABS: Absolute Lymphocyte Count 2.07 X10^3/uL (0.83-4.51); Absolute Neutrophil Count 5.5 X10^3/uL (2.0-7.7); Basophil# 0.03 X10^3/uL; Basophil% 0.4 % (0-1); Eosinophil# 0.18 X10^3/uL; Eosinophils% 2.1 % (0-5); Hematocrit 45.4 % (37-47); Hemoglobin 14.5 g/dL (12.0-15.0); Lymphocyte # 2.07 X10^3/ul (4.0); Lymphocyte % 24.5 % (19-41); Mean Corp Hgb Conc 31.9 g/dL (32-36); Mean Corpuscular Hgb 28.6 pg (27.0-32.0); Mean Corpuscular Volume 89.5 fL (81-99); Mean Platelet Vol. 10.4 fl (6.2-12.0); Monocyte# 0.65 X10^3/uL; Monocyte% 7.7 % (0-10); NRBC Flagged by Analyzer 0 % (0-5); Neutrophil # 5.48 X10^3/uL (2.7-7.7); Neutrophil % 64.9 % (47-70); Platelet Count 243 K/mm3 (150-450); RBC Distribution Width CV 13.6 % (11.6-14.6); RBC Distribution Width SD 44.3 fl (35.1-43.9); Red Blood Count 5.07 M/mm3 (4.2-5.4); White Blood Count 8.4 K/mm3 (4.4-11.0)
[2019-06-06 13:41] LABS: Partial Thromboplast Time 30.1 Seconds (24.1-36.2); Prothrombin Time (Protime)PT. 12.6 SECONDS (11.7-14.9)
[2019-06-06 14:02] LABS: Anion Gap 6 (5-15); BUN 10 mg/dL (7-18); BUN/Creat Ratio 12.1 RATIO (10-20); Calcium,Total 9.5 mg/dL (8.5-10.1); Chloride 105 mmol/L (98-107); Creatinine, Serum 0.83 mg/dL (0.55-1.02); EST Glomerular Filtration Rate 73 mL/min (>60); Est Glom Filt Rate - Afr Amer 88 mL/min (>60); Glucose 118 mg/dL (74-106); Potassium 3.9 mmol/L (3.5-5.1); Sodium Level 138 mmol/L (136-145)
[2019-06-06 14:05] LABS: AST(SGOT) 13 U/L (15-37); Alanine Aminotransfer ALT/SGPT 17 U/L (13-56); Albumin, Serum 4.4 g/dL (3.2-5.0); Alkaline Phosphatase 50 U/L (45-117); Bilirubin, Direct 0.11 mg/dL (0.00-0.30); Cholesterol 472 mg/dL (200); Globulin 3.5 g/dL (2.2-4.2); High Density Lipoprotein 58 mg/dL; Protein, Total 7.9 g/dL (6.4-8.2); Triglycerides 128 mg/dL; Very Low Density Lipoprotein 26 mg/dL (5-40)
== END | disposition home or self-care (01) ==
PROVIDERS: Internal Medicine Cardiovascular Disease; Family Provider Family Medicine; PCP Family Medicine; Referring Provider Physician Assistant Medical; Visit Provider Physician Assistant Medical
DX: R07.9 Chest pain, unspecified (principal); I25.810 Atherosclerosis of coronary artery bypass graft(s) without angina pectoris; E78.00 Pure hypercholesterolemia, unspecified
CPT/HCPCS: 36415; 71046; 80048; 80061; 80076; 85025; 85610; 85730

== ENCOUNTER 2019-06-11 08:00 | Day surgery (SDC) | payer MEDICARE, SELFPAY ==
[2019-06-06 11:38] VITALS: BMI 27.2
--- NOTE | 2019-06-08 08:07 | HP_ITS ---
HPI HPI History of Present Illness Surgical H&P: Yes Details: This is a 68-year-old female that presents here today for an overdue follow-up. She does have a history of coronary artery disease with remote bypass surgery, and recent stenting in 2018, hypertension, hyperlipidemia, aortic stenosis, bilateral carotid artery stenosis. She was seen in our office last May of 2018. On May 22, 2018 she presented to the emergency room with chest discomfort and shortness of breath that had been ongoing for 2 months. She also had intermittent back discomfort. She did undergo a heart catheterization which demonstrated left main coronary artery was totally occluded, the left anterior descending artery was totally occluded, the circumflex artery was totally occluded, the right coronary artery was totally occluded. The saphenous vein graft to right coronary artery was totally occluded, and saphenous vein graft to the circumflex artery was totally occluded, the saphenous vein graft to the first diagonal vessel had a distal 95% stenotic lesion, and the left internal mammary artery to the left anterior descending artery was noted to be patent. She also had collateral flow from left to right. She underwent angioplasty and placement of a drug-eluting stent 3.5 x 12 mm to the saphenous vein graft to the diagonal vessel. Pt sts that symptoms are similar to what she was having a year ago. She is having discomfort at rest. It is in her back, radiates around to her shoulders and around to her shoulders. It is a 7/10. This lasts for 5 minutes. It occurs 4-5 times a night. These symptoms started approx 2 weeks ago. She also notes that she has more fatigue that has been gradually. She has been taken her medications except stopped her statin d/t muscle aches. She is normally active. Intake Vital Signs 06/06/19 Height 5 ft 2 in 06/06/19 Weight: 149 lb 06/06/19 Body Mass Index (BMI) 27.2 06/06/19 Blood Pressure 181/82 H 06/06/19 Blood Pressure Location Lt brachial 06/06/19 Blood Pressure Position Sitting 06/06/19 Respiratory Rate 18 06/06/19 Pulse Rate 76 06/06/19 Pulse Source Monitor 06/06/19 Pulse Ox 97 Intake Visit Reasons: overdue for f/up, having some SOB, back pain Control Center Operator Required: No Is patient in pain?: No Allergies amoxicillin [From Augmentin] Adverse Reaction (Verified 06/06/19 11:38) Nausea/Vom/Diarrhea clavulanic acid [From Augmentin] Adverse Reaction (Verified 06/06/19 11:38) Nausea/Vom/Diarrhea Medications Aspirin E.C. [Ecotrin] 81 mg PO DAILY@0800 #1 tab 05/24/18 [Rx Confirmed 06/06/19] Nitroglycerin (INPATIENT USE) [Nitrostat] 0.4 mg SUBLINGUAL Q5M PRN tab 05/24/18 [Rx Confirmed 06/06/19] benazepril 40 mg tablet 40 mg PO DAILY #90 tab 05/31/18 [Rx Confirmed 06/06/19] carvedilol 25 mg tablet 25 mg PO BID #180 tab 05/31/18 [Rx Confirmed 06/06/19] clopidogrel 75 mg tablet 75 mg PO DAILY #90 tab 05/31/18 [Rx Confirmed 06/06/19] amlodipine 10 mg tablet 10 mg PO DAILY #90 tab 05/23/19 [Rx Confirmed 06/06/19] isosorbide mononitrate ER 30 mg tablet,extended release 24 hr 30 mg PO DAILY #30 tab 06/06/19 [Rx Confirmed 06/06/19] nitroglycerin 0.4 mg sublingual tablet 0.4 mg SUBLINGUAL Q5-15M PRN #25 tab 06/06/19 [Rx Confirmed 06/06/19] PFSH Medical History Non-rheumatic aortic stenosis (Chronic) Bilateral carotid artery stenosis (Chronic) Atherosclerosis of coronary artery of jackson heart without angina pectoris (Chronic) Atherosclerosis of coronary artery bypass graft without angina pectoris (Chronic) Essential (primary) hypertension (Chronic) HLD (hyperlipidemia) (Chronic) Surgical History History of coronary artery stent placement (Resolved 05/23/18) H/O coronary artery bypass surgery (Resolved) History of left heart catheterization (Resolved) History of left-sided carotid endarterectomy (Resolved) Family History Uncle Myocardial infarction CAD (coronary artery disease) Other Heart disease Social History (Updated 06/08/19 @ 08:07 by MARIUSZ Mendieta) Smoking Status: Never smoker ROS Const Const: Positive for fatigue and weakness; negative for fever(s) or headache(s) Eyes Eyes: Negative for blind spots, loss of peripheral vision or transient loss of vision ENT ENT: Negative for headache(s), dizziness, tinnitus or Nosebleed/epistaxis Cardio Chest Pain: Yes Palpitations: No Edema: None Muscle aches with walking: None Resp Respiratory: Positive for SOB with activity; negative for SOB at rest, SOB orthopnea\SOB lying down or Cough GI GI: Negative nausea, vomiting, heartburn or vomiting blood/hematemesis : Negative for hematuria Musc Musc: Negative for muscle aches/ myalgia Neuro Neuro: Positive for weakness; negative for dizziness, lightheadedness, near syncope, syncope, orthostatic symptoms or headache(s) Mark Hematologic/Lymphatic: Negative for easy bleeding Endo Endo: Positive for fatigue Cardiology Exam Const Appearance: cooperative, healthy appearing, no acute distress, well developed and well groomed Nutritional Appearance: average body habitus and well nourished Orientation: alert, awake and oriented x3 Head Head: normal to inspection, normocephalic and atraumatic Ears: hearing grossly normal bilaterally and external ears normal Nose: external nose normal, nares normal, nasal mucous membranes and turbinates normal, septum normal, no nasal discharge Face and Sinus: face symmetric Mouth: oral mucosae normal, tongue normal, oropharynx normal and moist mucous membranes Teeth and gingiva: dentition normal Throat: posterior oropharynx normal, tonsils normal and uvula midline Eyes General: appearance normal, both eyes and all related structures Eyelids: eyelids normal Conjunctivae: conjunctivae normal Pupils: PERRL, normal by confrontation and accommodation normal EOM: EOM intact bilaterally Neck Neck: normal visual inspection, trachea midline and no JVD JVD: +5 Carotids: normal carotid upstroke and bounding pulses Chest Chest inspection: normal inspection of the chest, symmetric chest movement and normal respiratory effort Auscultation: Bilateral: Clear to Auscultation Cardio Palpation: normal PMI Rhythm: regular rhythm Heart sounds: S1 normal and S2 normal Murmur: Grade 2/6, soft and LLSB GI GI: normal to inspection, soft, no hepatosplenomegaly and bowel sounds present Neuro General: alert, awake, oriented x3, gait normal, moves all extremities and no focal sensory deficit Skin Skin: no rashes or lesions noted Extremities Pulses: Normal: Right Femoral Pulse, Left Femoral Pulse, Right Dorsalis Pedis Pulse, Left Dorsalis Pedis Pulse, Right Posterior Tibial Pulse, Left Posterior Tibial Pulse, Right Radial Pulse, Left Radial Pulse Lower Extremity Edema: None: Bilateral Musculoskel Musculoskeletal: No joint tenderness Psych Psychological: normal affect Assessment & Plan 1. Atherosclerotic heart disease of jackson coronary artery with unspecified angina pectoris I25.119 Plan Patient does have symptoms that are concerning for angina. Her symptoms are similar to what she had prior to her previous bypass surgery and previous stenting in 2018. Because they are so similar would like to proceed with a diagnostic heart catheterization to further evaluate. Did start patient on isosorbide, she was reminded that if her chest discomfort worsens that she should to the emergency room. This is tentatively scheduled for June [address] Dave. 2. Essential hypertension I10 Plan Blood pressure is elevated today. I did add isosorbide to help with her angina, this will also help with her blood pressure. Will reevaluate at next office visit. 3. HLD (hyperlipidemia) E78.5 Plan Patient has since stopped her statins due to myalgias. Emphasized the importance of cholesterol management with her significant coronary artery disease. We will obtain lipids today and then reevaluate medications. 4. Bilateral carotid artery stenosis I65.23 Plan Patient does have moderate carotid artery disease. Would like to obtain a carotid ultrasound to further evaluate stability. We will schedule this for after her heart catheterization at her next follow-up. 5. Non-rheumatic aortic stenosis I35.0 Plan Patient does have mild aortic stenosis. We will continue to monitor with periodic echocardiograms as deemed appropriate. Plan Detail Other Orders Orders: Left Heart Cath w/Grafts 06/06/19 I25.810, R07.9 12 Lead EKG performed by [facility] [place] 06/06/19 I25.810, R07.9, Z95.1, Z95.5 Basic Metabolic Profile (BMP) 06/06/19 I25.810, R07.9 Partial Thromboplast Time 06/06/19 I25.810, R07.9 Prothrombin Time w/INR 06/06/19 I25.810, R07.9 CBC W/Diff, Automated 06/06/19 I25.810, R07.9 Chest PA and Lateral 06/06/19 I25.810, R07.9 Other Medications New: isosorbide mononitrate ER 30 mg PO DAILY 30 tabs 11RF nitroglycerin until response; do not exceed 3 doses per episode 0.4 mg sublingual Q5-15M PRN 25 tabs 3RF Additional Comments The above patient was discussed with Dr. Dave, he agrees with plan of care. Thank you for allowing us to participate in patient's plan of care, if you have any questions please do not hesitate to call. This note was generated using a voice recognition system and there may be incorrect words, spelling or punctuation errors that were not noted when reviewing the office note prior to saving. Follow Up 06/06/19 (print labs and cxr req for to to get today, I need to schedule a heart cath) Coding Level of Care Code Off vis,est,level 4 Diagnoses Atherosclerotic heart disease of jackson coronary artery with unspecified angina pectoris I25.119 Essential hypertension I10 HLD (hyperlipidemia) E78.5 Bilateral carotid artery stenosis I65.23 Non-rheumatic aortic stenosis I35.0 Coding Level of Care Code Off vis,est,level 4 Diagnoses Atherosclerotic heart disease of jackson coronary artery with unspecified angina pectoris I25.119 Essential hypertension I10 HLD (hyperlipidemia) E78.5 Bilateral carotid artery stenosis I65.23 Non-rheumatic aortic stenosis I35.0 Supplemental Info Supplemental Information Echocardiogram in 2018 demonstrated: Normal LV size. Left ventricular systolic function is normal. The estimated ejection fraction is 60 %. Normal diastology for age. Mild aortic stenosis. Moderate focal aortic valve calcification. CORONARY ANGIOGRAPHY 2018: DOMINANCE: Right Dominant LEFT HEART ASSESSMENT Left Ventricular Ejection Fraction: Not assessed Eccentric palque noted in the left subclavian artery LEFT MAIN: is occluded LEFT ANTERIOR DECENDING ARTERY: OSTIAL LAD: is occluded CIRCUMFLEX ARTERY: is occluded RIGHT CORONARY ARTERY: OSTIAL RCA: is occluded GRAFTS: Saphenous Vein graft to the RCA is totally occluded Saphenous Vein graft to the CIRC is totally occluded Saphenous Vein graft to the 1st Diagonal has a distal lesion of 95 % CLARK graft to the Mid LAD is patent COLLATERAL FLOW: Collateral flow from Left to Right Labs LDL Cholesterol 388 mg/dL (0-130) H 06/06/19 HDL Cholesterol 58 mg/dL (40-) 06/06/19 Triglycerides 128 mg/dL (-199) 06/06/19 VLDL Cholesterol 26 mg/dL (5-40) 06/06/19 Diagnostics Electrocardiogram 05/24/18 Echocardiogram 05/22/18 Cardiac Catheterization 05/23/18 Chest X-Ray 06/06/19 06/08/19 0807 <Electronically signed by Anastasia Pelayo> Date _ Anastasia VEE
[2019-06-08 10:56] VITALS: BMI 27.2
[2019-06-11] VITALS (24 sets, daily range): BP systolic 100–152; BP diastolic 63–96; PULSE 60–81; RESP 15–25; TEMP 36.3–36.6; O2SAT 86–99; BMI 28.0
--- NOTE | 2019-06-11 10:17 | CL.D_ITS ---
Patient Name: DAVINA CISNEROS Study Date: 06/11/2019 Performing: Chai Dave MD Ht: 61.81 inches 157 cm : 1950 Wt: 149.91 lbs 68 kg Age: 68 Gender: female BSA: 1.69 PROCEDURE(S) PERFORMED BQ29-FUX/COR/LV/CABG IM11-SSB W OR WO PTCA, SINGLE CORONARY ARTERY CLINICAL PROFILE AND INDICATIONS Indications: Worsening Angina Heart Failure: None Stress/Imaging Stress/Image Study Performed: No CAD Presentations: Unstable angina. CONCLUSIONS Severe coronary artery disease with hamilton occluded vessels and high-grade stenosis of the saphenous vein graft to the diagonal vessel RECOMMENDATIONS Referred for immediate PCI Perform echocardiogram to assess extent of mitral regurgitation DESCRIPTION OF PROCEDURE The patient arrived to the procedure lab. The risks and benefits of the procedure as well as a full d escription of our services here and current unavailability of surgical backup were fully explained to the patient and/or their significant other prior to the catheterization. The Timeout was completed, verifying the correct patient and procedure. The patient's procedural site was prepped and draped in the usual fashion. Local anesthetic was given subcutaneously to right groin region with Lidocaine 2%. Using a modified Seldinger technique, arterial access was obtained via the right femoral artery, a 5 Fr sheath was inserted. Left Coronary Artery selective angiography was performed in multiple views u sing a 5 Fr. JL4 catheter. Right Coronary Artery selective angiography was then performed in multiple views using a 5 Fr. 3DRC (Oscar) catheter. Saphenous Vein graft to the DIAG 1 selective angiograp hy was performed in multiple views using a 5 Fr. 3DRC (Oscar) catheter. Left internal mammary artery graft to the LAD selective angiography was performed in multiple views using a 5 Fr. 3 DRC (Oscar) catheter. Left Ventriculography was performed in TRAORE projection using a 5 Fr. Pigtail catheter. LV to AO pullback pressures were then recorded. CORONARY ANGIOGRAPHY DOMINANCE: Right Dominant LEFT HEART ASSESSMENT Left Ventricular Ejection Fraction: by LV Gram 45 % Inferior Basal Akinesis LEFT MAIN: is occluded LEFT ANTERIOR DESCENDING ARTERY: OSTIAL LAD: is occluded RIGHT CORONARY ARTERY: PROX RCA: is occluded GRAFTS: CLARK graft to the Mid LAD is patent Saphenous Vein graft to the 1st Diagonal Has a lesion just proximal to the anastomotic site of 95% Saphenous Vein graft to the CIRC is totally occluded Saphenous Vein graft to the RCA is totally occluded COLLATERAL FLOW: Collateral flow from Right to Right Collateral flow from Left to Right VALVE FINDINGS: Mitral Valve Insufficiency - Grade 3 COMPLICATIONS PROCEDURE MEDICATIONS Versed 1 mg IV Oxygen: 2 L/min via nasal cannula Heparin 6000 unit(s) IV 06/11/2019 10:11:27 IV Fluids: .9 NaCl increased to open ml/hr 06/11/2019 10:08:43 SUMMARY OF HEMODYNAMIC DATA Time AIR REST ECG 08:27:54 ECG 09:18:34 AO 111/64 (84) SA 09:47:43 LV 95/16, 19 09:56:55 LV 98/16, 20 09:57:03 LV 106/8, 23 09:57:56 LV 103/9, 22 09:58:07 LVp 103/10, 21 09:58:13 AOp 98/0 (32) 09:58:18 Signed By Chai Dave MD On 06/11/2019 10:16:48 Chai Dave MD
--- NOTE | 2019-06-11 10:47 | CL.I_ITS ---
Patient Name: DAVINA CISNEROS Study Date: 06/11/2019 Performing: Nick Faustin MD Ht: 61.81 inches 157 cm : 1950 Wt: 149.91 lbs 68 kg Age: 68 Gender: female BSA: 1.69 PROCEDURE(S) PERFORMED DR16-UZS W OR WO PTCA, SINGLE CORONARY ARTERY CLINICAL PROFILE AND CO-MORBIDITIES Indications: Worsening Angina, Stable Known CAD, Valvular Disease, LV Dysfunction Heart Failure: NYHA Class: 1 Stress/Imaging Stress/Image Study Performed: No Angina Classification Anginal Classification w/in 2 Weeks: CCS III CAD Presentations: Unstable angina. Comorbidities/Risk Factors: Hypertension Dyslipidemia Prior PCI CONCLUSIONS Successful PTCA/KENYETTA of the distal SVG to DIAG with a 2.25 x 8 Promus Synergy, post dilated with a 2.5 x 8 NC Balloon at 8 dallin (2.4 mm); 85%-->0%, no dissection. Pt had identical back pain during stent deployment which is her anginal equivalent. RECOMMENDATIONS Highly recommend quitting all tobacco products Follow up with primary manager alliance Risk factor modification ASA Indefinitley Plavix for at least 12 months Routine post interventional care Refer for Outpatient Cardiac Rehab Manual sheath removal per protocol Follow up with Dr. Dave Manual sheath removal given severe PVD. DESCRIPTION OF PROCEDURE The patient arrived to the procedure lab. The risks and benefits of the procedure as well as a full d escription of our services here and current unavailability of surgical backup were fully explained to the patient and/or their significant other prior to the catheterization. The Timeout was completed, verifying the correct patient and procedure. The patient's procedural site was prepped and draped in the usual fashion. Local anesthetic was given subcutaneously to right groin region with Lidocaine 2% Using a modified Seldinger technique,arterial access was obtained via the right femoral artery, a 5Fr sheath was inserted. Left Coronary Artery selective angiography was performed in multiple views usin g a 5 Fr. JL4 catheter. Right Coronary Artery selective angiography was then performed in multiple vi ews using a 5 Fr. 3DRC (Oscar) catheter. Saphenous Vein graft to the DIAG 1 selective angiography was performed in multiple views using a 5 Fr. 3DRC (Oscar) catheter. Left internal mammary artery graft to the LAD selective angiography was performed in multiple views using a 5 Fr. 3 DRC (Oscar) catheter. Left Ventriculography was performed in TRAORE projection using a 5 Fr. Pigtail catheter. LV to AO pullback pressures were then recorded.The images were reviewed and options discuss ed. A decision was then made to proceed with an Intervention, IVUS or other adjunct procedure. Arterial sheath was exchanged for a 6 Fr Sheath. HS II Guide catheter was inserted and engaged in to the SVG to the 1st Diagonal. BMW Guide wire was advanced to the SVG to the 1st Diagonal. 2.0x12 Em erge Balloon catheter was advanced across lesion in the SVG to the first diagonal, distal. 2.0x08 Zhanna rge Balloon catheter was advanced across lesion in the SVG to the first diagonal, distal. PTCA balloo n inflated at 7 atms for 12 secs. 2.25x8 Synergy Drug Eluting stent was advanced across the lesion in the graft to the 1st Diagonal. Angiogram performed post stent deployment. 2.5x8 NC Emerge Balloon ca theter was inserted post stent. Angiogram performed post balloon dilatation. Contrast was injected th rough the sheath and the Right Iliac and Femoral artery were assessed for possible closure device. T he arterial sheath was sutured in place and capped INTERVENTION INFORMATION LESION SITE: Vein > to 1st Diagonal Segment Number: 15-First diagonal branch segment - 1st Diag , Le kathryn Location: Distal Lesion Complexity: High/C, lesion at bifurcation: No, thrombus present: No, lesion length: 8 mm, starr rit lesion: Yes Pre Stenosis: 85 % Pre intervention CHLOE flow: 3 Post Stenosis: 0 % Post intervention CHLOE flow: 3 Lesion Devices: Medtronic 6 Fr HSII 100cm Guide Catheter Bonilla .014 BMW [employer] Straight 190cm Martin Sci EMERGE MR 2.00x12 BALLOON Martin Sci EMERGE MR 2.00x08 BALLOON Martin Sci Synergy MR KENYETTA 2.25x08 Martin Sci NC EMERGE MR 2.50x08 BALLOON COMPLICATIONS No Complications PROCEDURE MEDICATIONS Versed 1 mg IV Oxygen: 2 L/min via nasal cannula Heparin 6000 unit(s) IV 06/11/2019 10:11:27 IV Bolus: .9 NaCl 700 ml total 06/11/2019 10:34:43 IV Fluids: .9 NaCl increased to open ml/hr 06/11/2019 10:08:43 SUMMARY OF HEMODYNAMIC DATA Time AIR REST ECG 08:27:54 ECG 09:18:34 AO 111/64 (84) SA 09:47:43 LV 95/16, 19 09:56:55 LV 98/16, 20 09:57:03 LV 106/8, 23 09:57:56 LV 103/9, 22 09:58:07 LVp 103/10, 21 09:58:13 AOp 98/0 (32) 09:58:18 Signed By Nick Faustin MD On 06/11/2019 10:46:53 Nick Faustin MD
--- NOTE | 2019-06-11 10:57 | EKG12_ITS ---
Test Reason : POST PCI Blood Pressure : / mmHG Vent. Rate : 076 BPM Atrial Rate : 076 BPM P-R Int : 178 ms QRS Dur : 094 ms QT Int : 414 ms P-R-T Axes : 068 071 161 degrees QTc Int : 465 ms Normal sinus rhythm Left ventricular hypertrophy ST/T Wave abnormality:Consider Myocardial Ischemia Abnormal ECG Confirmed by JANESSA HOLLIS, MAHENDRA ([id number]), editorial director KARINE RUVALCABA ([id number]) on 06/20/2019 11:27:40 AM Referred By: Chai Dave Confirmed By:MAHENDRA RIDDLE MD
[2019-06-11] MEDS: 0.9% Normal Saline 1,000 ML 150 ML IV (11:30)
[2019-06-11 11:40] LABS: ACT Activated Clotting Time 224 sec (74-137)
--- NOTE | 2019-06-11 11:54 | ECHOD_ITS ---
Reason For Study: CHEST PAIN/ S/P PCI Procedure This was a 2D Doppler, Color Flow transthoracic echocardiogram. Exam performed portable in ICU/CCU. Left Ventricle Normal LV size. Mild concentric left ventricular hypertrophy. Left ventricular systolic function is normal. The estimated ejection fraction is 55 %. Unable to assess diastolic dysfunction due to arrhythmia. Mid-Inferior: Severely Hypokinetic. Infero-Basal: Akinetic. Right Ventricle Normal RV size. Normal systolic function. Atria The left atrium is mildly enlarged. Normal right atrium. Mitral Valve Bileaflet diffuse mitral valve thickening. Mild-Moderate (1-2+) mitral valve insufficiency. Tricuspid Valve Normal tricuspid valve. Mild to moderate (1-2+) tricuspid valve insufficiency. Pulmonary artery systolic pressure is 44 mmHg. Aortic Valve Trisinus/trileaflet aortic valve. Mild focal aortic valve calcification. Peak aortic valve gradient 24 mmHg. Mean aortic valve gradient 13 mmHg. Pulmonic Valve Normal pulmonic valve. Great Vessels Normal aortic root. The pulmonary artery is normal size. Normal inferior vena cava. Pericardium/Pleural No pericardial effusion. MMode/2D Measurements & Calculations LVIDd: 4.5 cm IVSd: 1.2 cm LVOT diam: 1.8 cm LVIDs: 3.1 cm LVPWd: 1.2 cm LVOT area: 2.7 cm2 RVDd: 3.6 cm FS: 31.2 % Ao root diam: 3.3 cm LAV(MOD-bp): 88.8 ml LVAd ap4: 33.5 cm2 LAV(MOD-bp) Indexed: 52.1 ml/m2 EDV(MOD-sp4): 119.2 ml LAV(MOD-sp2): 104.0 ml EDV(sp4-el): 123.8 ml LAV(MOD-sp4): 73.3 ml LVAs ap4: 16.8 cm2 ESV(MOD-sp4): 38.5 ml ESV(sp4-el): 40.5 ml EF(MOD-sp4): 67.7 % EF(sp4-el): 67.3 % SV(MOD-sp4): 80.6 ml SV(sp4-el): 83.3 ml LA A4 area: 23.9 cm2 LA dimension(2D): 4.4 cm RA A4 area: 16.6 cm2 Doppler Measurements & Calculations Ao V2 max: 248.4 cm/sec LV V1 max: 131.1 cm/sec SV(LVOT): 74.7 ml Ao max P.7 mmHg LV V1 max P.9 mmHg Ao V2 mean: 169.0 cm/sec LV V1 mean P.3 mmHg Ao mean P.9 mmHg LV V1 mean: 84.3 cm/sec Ao V2 VTI: 53.6 cm LV V1 VTI: 27.8 cm JACQUELYN(I,D): 1.4 cm2 JACQUELYN(V,D): 1.4 cm2 PA V2 max: 95.1 cm/sec PI end-d cristofer: 107.3 cm/sec TR max cristofer: 308.1 cm/sec TR max P.1 mmHg Interpretation Summary Normal LV size. Mild concentric left ventricular hypertrophy. Left ventricular systolic function is normal. The estimated ejection fraction is 55 %. Mid-Inferior: Severely Hypokinetic. Infero-Basal: Akinetic. Unable to assess diastolic dysfunction due to arrhythmia. Ordering Physician: Chai Dave Referring Physician: BETY VILLASENOR Performed By: Elisa Lozano, EMY, RVT
[2019-06-11 12:46] LABS: ACT Activated Clotting Time 169 sec (74-137)
[2019-06-11] MEDS: 0.9% Saline Lock 10 ML Syringe IV (12:52)
--- NOTE | 2019-06-11 13:28 | CRPHASE1_ITS ---
Patient Communication Former Patient:: Phase I, Phase II - Pt did CR at [facility] Cardiac Rehab Discussed with Patient:: Yes Guide to Cardiac Rehab Given to Patient:: Yes Cardiac Rehab Facility Choice List Given to Patient:: Yes - [facility] Choice Program Other:: Communication Given to CR - Prefers CR at [facility]., With permission faxed order and referral information - Prefers CR at [facility]. Kitchen And Bath Designer:: Nick Faustin PCP:: Andrea Mccallum Phase II Cardiac Rehab:: Yes Sessions:: 36 sessions - 3 days/wk, 12 weeks Phase I Charge:: Level I - Education Risk Factors/Lifestyle Smoking Status: Never smoker Hx Hypertension: Yes Hx Dyslipidemia: Yes Height: 5 ft 2 in Weight:: 153 lb BMI: 28.0 Post-Menopausal: Yes Stress: Recent Risk Factor for Sedentary Lifestyle: Lowest Risk Family History: Family History (Last Reviewed 06/06/19 @ 12:11 by MARIUSZ Mendieta) Uncle Myocardial infarction CAD (coronary artery disease) Other Heart disease Family History: High Cholesterol, Heart Disease, - - carotid and aortic stenosis Past Cardiac Illness: Coronary Artery Disease, Coronary Artery Bypass Graft Phase I Education Given On:: [place], Nutrition, Antiplatelet medication, CHF Issues Affecting Care:: None Knowledge of Condition:: Yes Learning Preferences: Verbal, Written, Audio/Visual, Demonstration Medical/Surgical History CAD:: Yes Hypertension:: Yes Dyslipidemia:: Yes Other Medical/Surgical Issues:: aortic and carotid artery stenosis CABG: Yes Cardiac Rehabilitation Info Cardiac Rehabilitation Program Information: Cardiac Rehabilitation is important for patients like you who are recovering from a heart problem. Cardiac rehabilitation programs are recognized as integral to the continued care of the patient with coronary heart disease. The cardiac rehabilitation program is designed to optimize a patient's physical, psychological, and social functioning. Health zoo caretaker work in cardiac rehabilitation programs and assist you with getting the treatments you need to get stronger and healthier - like exercise, healthy eating habits, and medications. Cardiac rehabilitation has been show to help people with heart problems live longer and have better life enjoyment than people who do not go to cardiac rehabilitation. Please contact the Cardiac Rehabilitation Program at [facility] at in two weeks if you have not heard from them.
--- NOTE | 2019-06-11 13:37 | CRPH1.INSTRU ---
General Education CAD and cardiac anatomy and function:: Patient communicates acknowledgment, Needs reinforcement Explanation of diagnoses and procedures:: Patient communicates acknowledgment, Needs reinforcement Sign/Symptoms of [place]:: Patient communicates acknowledgment, Needs reinforcement Antiplatelet therapy: Patient communicates acknowledgment, Needs reinforcement Proper use of NTG-SL: Patient communicates acknowledgment, Needs reinforcement Emergency procedures and activation of EMS: Patient communicates acknowledgment, Needs reinforcement Compliance of all prescribed medications: Patient communicates acknowledgment, Needs reinforcement Smoking Patient Nicotine/Smoking Risk Factors Are:: Non-smoker Nicotine/Smoking Response Code:: Not instructed Dyslipidemia Patient Dyslipidemia Risk Factors Are:: Total Cholesterol, Triglycerides, HDL, LDL Recommendations Include:: Lipid profile provided, Reviewed NCEP/ATP guidelines, Therapeutic Lifestyle Change dietary guidelines Dyslipidemia Response Code:: Patient communicates acknowledgment, Needs reinforcement Overweight/Obesity Patient Overweight/Obesity Risk Factors Are:: BMI Normal [24-29 & > 65 years old] Overweight/Obesity:: Not instructed Hypertension Recommendations Include:: Maintain BP <130/85, DASH dietary guidelines, Decrease/maintain normal body weight, Moderation of ETOH Hypertension:: Patient communicates acknowledgment, Needs reinforcement Heart Disease Patient Heart Disease Risk Factors Are:: Family history of heart disease < 65 years old, Previous cardiac event Recommendations Include:: Educated family members of their risk, Educated family members of importance of prevention of heart disease Heart Disease Response Code:: Patient communicates acknowledgment, Needs reinforcement Diabetes Patient Diabetes Risk Factors Are:: No documented hx of diabetes Diabetes:: Not instructed Metabolic Syndrome Metabolic Syndrome Response Code:: Not instructed Sedentary Patient Sedentary Risk Factors Are:: Lack of regular exercise Recommendations Include:: Aerobic exercise 5-7 times/week for 20-30 minutes continuously, Benefits of regular exercise, Discussed home walking program, Monitored Outpatient Cardiac Rehab Sedentary Response Code:: Patient communicates acknowledgment, Needs reinforcement Stress Recommendations Include:: Identification of stressors, and assessment of coping skills, Stress management techniques Stress Response Code:: Patient communicates acknowledgment, Needs reinforcement
--- NOTE | 2019-06-11 16:02 | CHAPLAIN ---
Type of Pastoral Visit _x__ Initial Visit ___ Follow-up Visit ___ On-call Visit ___ General Patient Visit ___ Spiritual Assessment ___ Family Conference ___ Bereavement ___ Rapid Response ___ Code Blue ___ Other (describe below) Pastoral Care Referral From _x__ Patient ___ Family _x__ Nurse ___ Physician ___ Resource Center Teacher ___ Armature Coil Winder ___ Other (describe below) Sacrament/Intervention _x__ Active listening ___ Anointing ___ Bahai ___ Bereavement ___ Communion _x__ Aparna exploration ___ _x__ Life review _x__ Prayer ___ Reconciliation ___ Sacrament of Sick _x__ Supportive presence ___ Wedding ___ Other (describe below) Pastoral Comments
[2019-06-11] MEDS: Carvedilol 25 MG Tablet PO (17:44)
[2019-06-12] VITALS (12 sets, daily range): BP systolic 90–134; BP diastolic 51–71; PULSE 52–63; RESP 15–23; TEMP 36.4–36.9; O2SAT 91–98
[2019-06-12 04:56] LABS: Hematocrit 37.7 % (37-47); Hemoglobin 12.2 g/dL (12.0-15.0); Mean Corp Hgb Conc 32.4 g/dL (32-36); Mean Corpuscular Hgb 28.8 pg (27.0-32.0); Mean Corpuscular Volume 89.1 fL (81-99); Mean Platelet Vol. 10.6 fl (6.2-12.0); Platelet Count 202 K/mm3 (150-450); RBC Distribution Width CV 13.7 % (11.6-14.6); RBC Distribution Width SD 44.4 fl (35.1-43.9); Red Blood Count 4.23 M/mm3 (4.2-5.4); White Blood Count 9.6 K/mm3 (4.4-11.0)
[2019-06-12 05:08] LABS: AST(SGOT) 88 U/L (15-37); Alanine Aminotransfer ALT/SGPT 27 U/L (13-56); Albumin, Serum 3.2 g/dL (3.2-5.0); Alkaline Phosphatase 40 U/L (45-117); Anion Gap 4 (5-15); BUN 15 mg/dL (7-18); Calcium,Total 8.1 mg/dL (8.5-10.1); Chloride 111 mmol/L (98-107); Creatinine, Serum 0.68 mg/dL (0.55-1.02); EST Glomerular Filtration Rate 90 mL/min (>60); Est Glom Filt Rate - Afr Amer 109 mL/min (>60); Globulin 3.2 g/dL (2.2-4.2); Glucose 106 mg/dL (74-106); Potassium 3.6 mmol/L (3.5-5.1); Protein, Total 6.4 g/dL (6.4-8.2); Sodium Level 142 mmol/L (136-145)
--- NOTE | 2019-06-12 07:17 | PCM.PN.CARD ---
Subjectve: Seymour seen and evaluated. Appears to be doing well. Objective: Vital Signs Temp Pulse Resp BP Pulse Ox 97.8 F 57 L 17 114/64 96 06/12/19 04:00 06/12/19 05:00 06/12/19 05:00 06/12/19 05:00 06/12/19 05:00 Oxygen Flow Rate (L/min) 2 Oxygen Delivery Method Nasal Cannula Weight: 152 lb 5.431 oz Body Mass Index (BMI) 28.0 Intake and Output for Last 24 Hours 06/10/19 06/11/19 06/12/19 23:59 23:59 23:59 Intake Total 2080 / 2280 200 / 200 Output Total 450 / 450 Balance 1630 / 1830 200 / 200 General: Awake, Alert, Oriented x 3 HEENT: PERRL, EOMI, Sclera Non Icteric Neck: Supple, Good ROM, No Lymph Node Enlargement Lungs: Clear to auscultation Cardiovascular: Regular Rhythm, Normal S1, Normal S2, No Murmurs, No Rubs, No Gallops Vascular: No Carotid Bruits, Normal Femoral Pulses, Normal Radial Pulses, Normal Dorsalis Pedal Pulse, Normal Posterior Tibial Pulses Abdomen: Bowel Sounds Present, Soft, Non Tender, No HSM, No Organomegaly Extremities: No Cyanosis, No Clubbing, No edema Musculoskeletal: No Erythema Skin: No Rashes Lymphatic: No Lymph Node Enlargement Neurological: No Focal Motor or Sensory Deficit Psych/Mental Status: Appropriate 06/12/19 04:40: WBC 9.6, RBC 4.23, Hgb 12.2, Hct 37.7, MCV 89.1, MCH 28.8, MCHC 32.4, Plt Count 202, MPV 10.6 06/12/19 04:40: Sodium 142, Potassium 3.6, Chloride 111 H, Carbon Dioxide 27.0, Anion Gap 4 L, BUN 15, Creatinine 0.68, Est GFR (MDRD) Af Amer 109, Est GFR (MDRD) Non-Af 90, BUN/Creatinine Ratio 22.0 H, Glucose 106, Calcium 8.1 L, Total Bilirubin 0.60 Rhythm: EKG: ECHO: Stress Test: Cardiac Cath: PCI: CT Surgery: Holter monitor: EPS: PPM: CXR: Chest CT Scan: Medical Necessity - Tobacco Use Smoking Status: Never smoker Assessment/Plan 1. Status post angioplasty and stenting of the saphenous vein graft to the diagonal vessel successfully yesterday. Patient denies any chest discomfort EKG appears to have normalized and creatinine and hemoglobin all appear to be stable. Recommendation at this time will be to discharge for outpatient follow-up and cardiac rehabilitation.
[2019-06-12] MEDS: Carvedilol 25 MG Tablet PO (07:43)
[2019-06-12] MEDS: amLODIPine 10 MG Tablet PO (07:44)
[2019-06-12] MEDS: Aspirin E.C. 81 MG Tablet PO (07:44)
[2019-06-12] MEDS: Isosorbide Mononitrate 30 MG Tablet PO (07:44)
[2019-06-12] MEDS: Clopidogrel Bisulfate 75 MG Tablet PO (07:45)
[2019-06-12] MEDS: Lisinopril 40 MG Tablet PO (07:45)
[2019-06-12] MEDS: Furosemide 40 MG/4 ML Vial IV (09:15)
[2019-06-12] MEDS: 0.9% Saline Lock 10 ML Syringe IV (09:15)
--- NOTE | 2019-06-12 09:53 | PCM.DC.CCA ---
Discharge Diet: Low fat/ Low Cholesterol Discharge Activity: Return to Normal Activity May shower in (days): 1 Lifting Restrictions: 10 pounds and also avoid any pushing or pulling for 3 days after your test. Call your doctor if your incision/area has: Continuous Slow Oozing, Sudden Increased Bleeding, Increased Pain/ Swelling, Increased Redness, Foul Smelling Discharge, Swelling at the incision site Call your doctor if you observe: Fever of 101 or Higher, Shortness of breath, Chest pain Remove Dressing in (days):: 1 Cleanse incision/area with: Soap & Water Additional Dressing/Incision Instructions:: Keep the dressing (bandage) on until the next morning. You may then shower, but do not take a tub bath for 5 days after your test. It is normal to have some tenderness and discomfort at the puncture site. Sometimes bruising also occurs. However, if pain, numbness, or coldness occurs below the puncture site (in your leg, toes, arms or fingers) call your doctor at once. You may have a small, marble sized knot at the puncture site. This is normal. Do not rub it. It will go away in 4-6 weeks. Bleeding can occur from the area where the puncture was done. Blood may spurt or drip from the site. If blood spurts, apply pressure right away to stop bleeding and call 911. Although rare, bleeding into the tissue (hematoma) can also occur. If this happens, a large, firm area goose egg under the skin will appear. If any of these occur, lie down as flat as you can and have someone apply firm pressure to the cath site with a gauze pad or a clean washcloth for 10-15 minutes. Call 911 or go to the Emergency Department. Additional Instructions: You need to stay on your plavix for at least one year before it is stopped. Allergies/Adverse Reactions: Allergies Cjlybak-Cub-Oeg Reductase Inhibitor Adverse Reaction (Severe, Verified 06/08/19 08:18) mylgias amoxicillin [From Augmentin] Adverse Reaction (Verified 06/06/19 11:38) Nausea/Vom/Diarrhea clavulanic acid [From Augmentin] Adverse Reaction (Verified 06/06/19 11:38) Nausea/Vom/Diarrhea Medications to take at Discharge Aspirin E.C. [Ecotrin] 81 mg PO DAILY@0800 #1 tab 05/24/18 benazepril 40 mg tablet 40 mg PO DAILY #90 tab 05/31/18 carvedilol 25 mg tablet 25 mg PO BID #180 tab 05/31/18 clopidogrel 75 mg tablet 75 mg PO DAILY #90 tab 05/31/18 amlodipine 10 mg tablet 10 mg PO DAILY #90 tab 05/23/19 isosorbide mononitrate ER 30 mg tablet,extended release 24 hr 30 mg PO DAILY #30 tab 06/06/19 nitroglycerin 0.4 mg sublingual tablet 0.4 mg SUBLINGUAL Q5-15M PRN #25 tab 06/06/19 Nitroglycerin (INPATIENT USE) [Nitrostat] 0.4 mg SUBLINGUAL Q5M PRN tab.subl 06/12/19 Primary Care Physician: Andrea Mccallum MD [Primary Care Provider] - Test Results: Test results from this visit will be discussed in further detail at your follow-up appointment, if applicable. Please Follow Up With: Anastasia Gunter PA When: 06/22 at 2pm Cardiac Rehabilitation Info Cardiac Rehabilitation Program Information: Cardiac Rehabilitation is important for patients like you who are recovering from a heart problem. Cardiac rehabilitation programs are recognized as integral to the continued care of the patient with coronary heart disease. The cardiac rehabilitation program is designed to optimize a patient's physical, psychological, and social functioning. Health children's zoo caretaker work in cardiac rehabilitation programs and assist you with getting the treatments you need to get stronger and healthier - like exercise, healthy eating habits, and medications. Cardiac rehabilitation has been show to help people with heart problems live longer and have better life enjoyment than people who do not go to cardiac rehabilitation. Please contact the Cardiac Rehabilitation Program at [facility] at in two weeks if you have not heard from them.
== END 2019-06-12 11:20 | disposition home or self-care (01) ==
LOC: CLSP 08:03 → ICU 10:43
PROVIDERS: Internal Medicine Cardiovascular Disease; Family Provider Family Medicine; PCP Family Medicine; Referring Provider Internal Medicine Cardiovascular Disease; Visit Provider Internal Medicine Cardiovascular Disease
DX: I25.110 Atherosclerotic heart disease of native coronary artery with unstable angina pectoris (principal); Z95.1 Presence of aortocoronary bypass graft; Z95.5 Presence of coronary angioplasty implant and graft; I10 Essential (primary) hypertension; E78.5 Hyperlipidemia, unspecified; I35.0 Nonrheumatic aortic (valve) stenosis; I65.23 Occlusion and stenosis of bilateral carotid arteries; Z79.82 Long term (current) use of aspirin; Z79.899 Other long term (current) drug therapy
CPT/HCPCS: 80053; 85027; 85347; 92928; 93005; 93306; 93459; 99152; 99153; J7030; J7040; Q9967; A4216; C1725; C1769; C1874; C1887; C9600; J1940

== ENCOUNTER 2024-02-02 08:40 | Emergency (ER) | payer MEDICARE, SELFPAY ==
[2019-06-11 13:37] VITALS: BMI 28.0
[2024-02-02 08:40] VITALS: BP 175/80; PULSE 72; RESP 16; TEMP 36.4; O2SAT 98; BMI 26.2
--- NOTE | 2024-02-02 09:07 | EKG12_ITS ---
Test Reason : CHEST PAIN Blood Pressure : / mmHG Vent. Rate : 073 BPM Atrial Rate : 074 BPM P-R Int : 182 ms QRS Dur : 090 ms QT Int : 412 ms P-R-T Axes : 070 067 076 degrees QTc Int : 453 ms Normal sinus rhythm Nonspecific ST abnormality Abnormal ECG Confirmed by ANTONIA HOLLIS, RYDER ([id number]), scientific publications editor KARINE RUVALCABA ([id number]) on 02/06/2024 11:07:37 AM Referred By: Confirmed By:RYDER KNIGHT MD
[2024-02-02 09:37] LABS: Absolute Lymphocyte Count 1.92 X10^3/uL (0.83-4.51); Absolute Neutrophil Count 6.6 X10^3/uL (2.0-7.7); Basophil# 0.05 X10^3/uL; Basophil% 0.5 % (0-1); Eosinophils% 3.2 % (0-5); Hematocrit 44.2 % (37-47); Hemoglobin 14.3 g/dL (12.0-15.0); Lymphocyte # 1.92 X10^3/ul (0.83-4.51); Lymphocyte % 20.3 % (19-41); Mean Corp Hgb Conc 32.4 g/dL (32-36); Mean Corpuscular Hgb 28.5 pg (27.0-32.0); Mean Corpuscular Volume 88.2 fL (81-99); Monocyte# 0.58 X10^3/uL; Monocyte% 6.1 % (0-10); NRBC Flagged by Analyzer 0 % (0-5); Neutrophil # 6.57 X10^3/uL (2.7-7.7); Neutrophil % 69.5 % (47-70); Platelet Count 209 K/mm3 (150-450); RBC Distribution Width CV 13.4 % (11.6-14.6); RBC Distribution Width SD 43.6 fl (35.1-43.9); Red Blood Count 5.01 M/mm3 (4.2-5.4); White Blood Count 9.5 K/mm3 (4.4-11.0)
--- NOTE | 2024-02-02 09:50 | RAD_ITS ---
STUDY: X-RAY CHEST REASON FOR EXAM: Female, 73 years old. Chest pain TECHNIQUE: Single AP portable view of the chest. COMPARISON: Comparison is made with prior study June 06, 2019. FINDINGS: EKG electrodes are seen. Minimal linear markings at the lung bases suggests mild linear scarring. There is no demonstrated pleural abnormality. Sternal cerclage wires and vascular clips are present from a prior sternotomy and coronary artery bypass graft procedure (CABG). Normal mediastinum and abdi. Normal visualized pulmonary arteries. There is atherosclerotic calcification of the aortic arch with tortuosity. Normal visualized thoracic spine. Normal visualized ribs, clavicles, and shoulders. There is no demonstrated abnormality of the visualized soft tissue structures of the upper abdomen. RAD/Chest 1 View (Portable) IMPRESSION: No acute abnormality is seen. Electronically Signed: Jourdan South MD at 10:10 EDT ,
[2024-02-02 10:03] LABS: Anion Gap 9 (5-15); BUN 13 mg/dL (7-18); BUN/Creat Ratio 12.9 RATIO (10-20); Calcium,Total 10.1 mg/dL (8.5-10.1); Chloride 103 mmol/L (98-107); Creatinine, Serum 1.01 mg/dL (0.55-1.02); EST Glomerular Filtration Rate 57 mL/min (>60); Est Glom Filt Rate - Afr Amer 69 mL/min (>60); Estimated Creatinine Clearance 42.55 ml/min; Glucose 142 mg/dL (74-106); Potassium 3.7 mmol/L (3.5-5.1); Sodium Level 141 mmol/L (136-145); Troponin-I HS (w/2H Reflex) 27 pg/mL (3.0-54.0)
--- NOTE | 2024-02-02 10:12 | EX.ED.DYSGE1 ---
HPI History of Present Illness Chief Complaint: Palpitations Narrative Narrative: 73-year-old female presenting with a feeling of shakiness. She states this started last evening at about 5:00. She does not have any chest pain or shortness of breath. She does not have any nausea or vomiting. No fevers or chills. She states she just feels shaky and a little bit weak. Patient does have a history of A-fib in the past was not sure if she was having this. She checked her blood pressure and she was 180/89. Her heart rate was 90. Patient does have history of CAD, cardiac stent, CABG. [facility] Medical History Non-rheumatic aortic stenosis Bilateral carotid artery stenosis Atherosclerosis of coronary artery bypass graft without angina pectoris Essential (primary) hypertension Atherosclerosis of coronary artery of [place] heart without angina pectoris HLD (hyperlipidemia) Home Medications ?Medication ?Instructions ?Recorded ?Last Taken ?Type aspirin 81 mg tablet,delayed 81 mg PO DAILY@0800 #1 TAB 05/24/18 06/10/19 Rx release nitroglycerin 0.4 mg sublingual 0.4 mg sublingual Q5-15M PRN chest 06/06/19 Unknown Rx tablet pain #25 tabs calcium carbonate (Antacid 200 mg PO BID 06/19/21 Unknown History (calcium carbonate)) amlodipine 10 mg tablet See Rx Instructions .Route 07/20/21 Unknown Rx .COMPLEX #90 tabs clopidogrel 75 mg tablet 75 mg PO DAILY #90 tabs 07/20/21 Unknown Rx rosuvastatin 20 mg tablet See Rx Instructions .Route 07/20/21 Unknown Rx .COMPLEX #90 tabs benazepril 40 mg tablet 40 mg PO DAILY #90 tabs 08/19/23 Unknown Rx buspirone 5 mg tablet 5 mg PO TID PRN anxiety 02/02/24 Unknown History carvedilol 6.25 mg tablet 6.25 mg PO BID 02/02/24 Unknown History Allergy/AdvReac Type Severity Reaction Status Date / Time Zytrojp-QQV-ApM Reductase AdvReac Severe mylgias Verified 02/02/24 08:40 Inhibitor (Txchyrr-Inp-Mzo Reductase Inhibitor) amoxicillin (From Augmentin) AdvReac Nausea/Vom/ Verified 02/02/24 08:40 Diarrhea clavulanic acid (From AdvReac Nausea/Vom/ Verified 02/02/24 08:40 Augmentin) Diarrhea Family History Uncle Myocardial infarction CAD (coronary artery disease) Other Heart disease Surgical History History of left-sided carotid endarterectomy History of left heart catheterization History of coronary artery stent placement (06/11/19) H/O coronary artery bypass surgery (1989) Social History Smoking Status: Never smoker EXAM Physical Exam Const Vital Signs: 02/02/24 08:40 02/02/24 09:07 02/02/24 10:40 Temperature 97.6 F L Temperature Source Temporal Pulse Rate 72 60 Pulse Rate [Lying] Pulse Rate [Sitting (for 1 minute prior to obtaining)] Pulse Rate [Standing (for 1 minute prior to obtaining)] Respiratory Rate 16 17 Blood Pressure 175/80 H 124/75 H Blood Pressure [Lying] Blood Pressure [Sitting (for 1 minute prior to obtaining)] Blood Pressure [Standing (for 1 minute prior to obtaining)] Blood Pressure Mean 111 91 Blood Pressure Mean [Lying] Blood Pressure Mean [Sitting (for 1 minute prior to obtaining)] Blood Pressure Mean [Standing (for 1 minute prior to obtaining)] Pulse Ox 98 98 Oxygen Delivery Method Room Air Room Air Room Air 02/02/24 10:43 Temperature Temperature Source Pulse Rate Pulse Rate [Lying] 74 Pulse Rate [Sitting (for 1 minute prior to obtaining)] 79 Pulse Rate [Standing (for 1 minute prior to obtaining)] 69 Respiratory Rate Blood Pressure Blood Pressure [Lying] 138/77 H Blood Pressure [Sitting (for 1 minute prior to obtaining)] 148/78 H Blood Pressure [Standing (for 1 minute prior to obtaining)] 142/84 H Blood Pressure Mean Blood Pressure Mean [Lying] 97 Blood Pressure Mean [Sitting (for 1 minute prior to obtaining)] 101 Blood Pressure Mean [Standing (for 1 minute prior to obtaining)] 103 Pulse Ox Oxygen Delivery Method MDM MDM MDM Narrative Medical decision making narrative: Patient presenting with shakiness and a sensation of weakness and lightheadedness. She has not any falls. She denies chest pain. Differential includes dehydration, anemia, electrolyte abnormalities, dysrhythmia, ACS, pneumonia, orthostatic hypotension. CBC will be obtained to assess white blood cell count, hemoglobin, platelets. BMP to assess renal function, electrolytes, glucose. High-sensitivity troponin and EKG to assess for ischemia/dysrhythmia. Chest x-ray to rule out pneumonia. Orthostatic vital signs will be obtained. CBC shows white blood cell count at 9.5. Hemoglobin 14.3. Platelets normal at 209. Renal function electrolytes within normal limits. High-sensitivity troponin 27 and delta troponin 24. EKG interpreted by myself shows a sinus rhythm at 73 bpm without sign of ischemic change or ectopy. Chest x-ray my interpretation no acute cardiopulmonary process. Radiologist interprets this and agrees. Orthostatic vital signs were normal. Patient counseled on all findings. All questions were answered. Discharged in stable condition. Return precautions discussed. Impression: 1. Generalized weakness 2. Lightheadedness Lab Data Attestation: I reviewed the patient's lab results. Labs: Laboratory Results - last 24 hr 02/02/24 02/02/24 09:25 11:47 WBC 9.5 RBC 5.01 Hgb 14.3 Hct 44.2 MCV 88.2 MCH 28.5 MCHC 32.4 RDW Std Deviation 43.6 RDW Coeff of Meg 13.4 Plt Count 209 MPV 10.0 Immature Gran % (Auto) 0.400 Neut % (Auto) 69.5 Lymph % (Auto) 20.3 [place] % (Auto) 6.1 Eos % (Auto) 3.2 Baso % (Auto) 0.5 Absolute Neuts (auto) 6.6 Absolute Lymphs (auto) 1.92 Nucleated RBC % 0 Sodium 141 Potassium 3.7 Chloride 103 Carbon Dioxide 29.0 Anion Gap 9 BUN 13 Creatinine 1.01 Estim Creat Clear Calc 42.55 Est GFR (MDRD) Af Amer 69 Est GFR (MDRD) Non-Af 57 L BUN/Creatinine Ratio 12.9 Glucose 142 H Calcium 10.1 Troponin I High Sens 27 24 Radiography Diagnostic Testing: Clinical Impression(s) from Imaging Studies Chest X-Ray 02/02/24 09:50 IMPRESSION: No acute abnormality is seen. Electronically Signed: Jourdan South MD at 10:10 EDT , Discharge Plan Triage Chief Complaint: Palpitations ED Provider: Abelino Crawley Dx/Rx/DC Orders Instructions: ED Palpitations Prescriptions: No Action nitroglycerin 0.4 mg tablet, sublingual 0.4 mg SUBLINGUAL Q5-15M PRN (Reason: chest pain) Qty: 25 3RF Rx Instructions: until response; do not exceed 3 doses per episode calcium carbonate [Antacid (calcium carbonate)] 200 mg calcium (500 mg) tablet,chewable 200 mg PO BID aspirin 81 MG tablet 81 mg PO DAILY@0800 Qty: 1 0RF buspirone 5 mg tablet 5 mg PO TID PRN (Reason: anxiety) carvedilol 6.25 mg tablet 6.25 mg PO BID rosuvastatin 20 mg tablet See Rx Instructions .ROUTE .COMPLEX Qty: 90 3RF Dose Instruction: take 1 tablet by mouth once daily Rx Instructions: take 1 tablet by mouth once daily clopidogrel 75 mg tablet 75 mg PO DAILY Qty: 90 3RF amlodipine 10 mg tablet See Rx Instructions .ROUTE .COMPLEX Qty: 90 3RF Dose Instruction: take 1 tablet by mouth once daily Rx Instructions: take 1 tablet by mouth once daily benazepril 40 mg tablet 40 mg PO DAILY Qty: 90 3RF Primary Care Provider: Andrea Mccallum Referrals: Andrea Mccallum MD [Primary Care Provider] - Print Language: Mauritian Disposition Disposition: Home, Self Care
[2024-02-02 10:40] VITALS: BP 124/75; PULSE 60; RESP 17; O2SAT 98
[2024-02-02 10:43] VITALS: BP 138/77; BP 142/84; BP 148/78; PULSE 69; PULSE 74; PULSE 79
[2024-02-02 11:33] LABS: Reflex Troponin-HS? (from REC) Y
[2024-02-02 12:00] VITALS: BP 144/75; PULSE 68; RESP 16; O2SAT 98
[2024-02-02 12:10] LABS: Troponin-I HS 24 pg/mL (3.0-54.0)
== END 2024-02-02 12:36 | disposition home or self-care (01) ==
PROVIDERS: Emergency Provider Student in an Organized Health Care Education/Training Program; PCP Family Medicine; Visit Provider Student in an Organized Health Care Education/Training Program
DX: R53.1 Weakness (principal); I48.91 Unspecified atrial fibrillation; R42 Dizziness and giddiness; I25.10 Atherosclerotic heart disease of native coronary artery without angina pectoris; Z95.5 Presence of coronary angioplasty implant and graft; Z79.899 Other long term (current) drug therapy; Z79.82 Long term (current) use of aspirin; Z79.01 Long term (current) use of anticoagulants
CPT/HCPCS: 71045; 80048; 84484; 85025; 93005; 99285